=== PATIENT | female | born 1985 | race Caucasian/White ===

== ENCOUNTER → 2018-11-24 | Outpatient (CLI) | payer BC ==
[2018-11-24 17:48] LABS: HEMATOCRIT 34.8 % (36.0-47.0); HEMOGLOBIN 11.4 g/dl (12.0-15.5); MEAN CORPUSCULAR HGB CONC 32.8 g/dl (32.0-36.5); MEAN CORPUSCULAR VOLUME 94.6 fl (80.0-96.0); PLATELET COUNT, AUTOMATED 347 10^3/uL (150-450); RED BLOOD COUNT 3.68 10^6/uL (4.00-5.40)
[2018-11-24 17:55] LABS: WHITE BLOOD COUNT 16.3 10^3/uL (4.0-10.0)
[2018-11-24 18:56] LABS: CHLAMYDIA DNA AMPLIFICATION NEGATIVE (NEGATIVE); GC DNA AMPLIFICATION NEGATIVE (NEGATIVE)
[2018-11-24 19:03] LABS: ATYPICAL LYMPH 1 % (0-5); EOSINOPHILS 1 % (0-5); LYMPHOCYTES 37 % (16-52); MONOCYTES 5 % (0-8); NEUTROPHILS 56 % (35-75); PLATELET ESTIMATE NORMAL (NORMAL)
[2018-11-25 10:58] LABS: HEPATITIS C VIRUS ABY INDEX 0.1 INDEX (<0.8); HIV 1&2 SCREEN CENTAUR NEGATIVE (NEGATIVE); RUBELLA IgG QUALITATIVE IMMUNE (IMMUNE)
== END ==
LOC: M SMT 15:43
PROVIDERS: ATTEND Advanced Practice Midwife
DX: Z34.81 Encounter for supervision of other normal pregnancy, first trimester (principal); Z36.89 Encounter for other specified antenatal screening

== ENCOUNTER → 2018-12-30 | Outpatient (CLI) | payer OTHER | LOC: M SMT 14:22 | PROVIDERS: ATTEND Obstetrics & Gynecology | DX: Z13.79 Encounter for other screening for genetic and chromosomal anomalies (principal) ==

== ENCOUNTER → 2019-02-22 | Outpatient (CLI) | payer BC ==
--- NOTE | 2019-02-22 16:31 | REP ---
Obstetric sonography: History: Supervision of , for anatomy. Findings: Scanning through the gravid uterus demonstrates a viable single intrauterine gestation in a cephalic lie. motion is observed and heart rate is recorded at 141 beats per minute. A grade 1 posterior placenta is seen without evidence of previa or abruption. Amniotic fluid is subjectively normal. Closed cervical length measures to 4.5 cm viewed transabdominally. No extrauterine abnormalities observed. No anomaly is seen. Right ventricular cardiac outflow tract view is less than optimally seen due to position. The following additional anatomic structures are identified and felt to be sonographically unremarkable: cranium, choroid plexus, cavum, cerebellum posterior fossa, face and profile, lungs, four-chamber heart with left ventricular outflow tract view, diaphragm, left-sided stomach, abdominal wall cord insertion, three-vessel umbilical cord, kidneys and bladder, spine, upper and lower extremities. Biometry chart: BPD 4.6 cm 19 weeks 6 days Head circumference 17.5 cm 20 weeks 0 days Abdominal circumference 14.6 cm 19 weeks 6 days Femur length 3.4 cm 20 weeks 4 days Humeral length 3.2 cm 20 weeks 4 days Cerebellar diameter 1.9 cm 18 weeks 4 days HC/AC ratio normal 1.20, cephalic index normal 0.71 estimated weight 337 grams, 0 pounds 11 ounces, 56th percentile for 19 weeks 6 days. Impression: Viable single intrauterine gestation of 19 weeks 6 days by today's composite criteria. OSMAR by today's sonography July 13, 2019. Electronically Signed by Tan Herr MD 02/22/2019 04:32 P
== END ==
LOC: M SMT 14:21
PROVIDERS: ATTEND Obstetrics & Gynecology
DX: Z34.82 Encounter for supervision of other normal pregnancy, second trimester (principal); Z36.89 Encounter for other specified antenatal screening; Z3A.19 19 weeks gestation of pregnancy

== ENCOUNTER → 2019-04-06 | Outpatient (CLI) | payer BC ==
[2019-04-06 13:31] LABS: BASO # 0.1 10^3/uL (0.0-0.2); BASO % 0.5 % (0.0-1.0); EOS # 0.2 10^3/uL (0.0-0.50); EOS % 1.3 % (0.0-3.0); HEMATOCRIT 33.3 % (36.0-47.0); HEMOGLOBIN 10.6 g/dl (12.0-15.5); LYMPH # 3.7 10^3/uL (1.5-4.5); LYMPH % 26.7 % (24.0-44.0); MEAN CORPUSCULAR HEMOGLOBIN 30.8 pg (27.0-33.0); MEAN CORPUSCULAR HGB CONC 31.8 g/dl (32.0-36.5); MEAN CORPUSCULAR VOLUME 96.8 fl (80.0-96.0); MONO # 0.9 10^3/uL (0.0-0.8); MONO % 6.5 % (0.0-5.0); NEUTROPHILS # 8.9 10^3/uL (1.8-7.7); NEUTROPHILS % 64.6 % (36.0-66.0); PLATELET COUNT, AUTOMATED 285 10^3/uL (150-450); RED BLOOD COUNT 3.44 10^6/uL (4.00-5.40); WHITE BLOOD COUNT 13.8 10^3/uL (4.0-10.0)
== END ==
LOC: M SMT 10:49
PROVIDERS: ATTEND Advanced Practice Midwife
DX: O09.513 Supervision of elderly primigravida, third trimester (principal); Z3A.00 Weeks of gestation of pregnancy not specified

== ENCOUNTER → 2019-06-14 | Outpatient (REF) | payer BC | LOC: M LAB REF 18:01 | PROVIDERS: ATTEND Advanced Practice Midwife | DX: O09.513 Supervision of elderly primigravida, third trimester (principal) ==

== ENCOUNTER → 2019-06-22 | Outpatient (REF) | payer BC ==
[~2019-06-22] MED LIST: OMEP10CASR PO; PRENTAB9 PO; WELLTAB40 PO
[2019-06-23 13:59] LABS: HEMATOCRIT 33.5 % (36.0-47.0); HEMOGLOBIN 10.1 g/dl (12.0-15.5); MEAN CORPUSCULAR HEMOGLOBIN 30.1 pg (27.0-33.0); MEAN CORPUSCULAR HGB CONC 30.1 g/dl (32.0-36.5); PLATELET COUNT, AUTOMATED 277 10^3/uL (150-450); RED BLOOD COUNT 3.35 10^6/uL (4.00-5.40); WHITE BLOOD COUNT 14.9 10^3/uL (4.0-10.0)
[2019-06-23 14:26] LABS: CREATININE,RANDOM URINE 59.9 MG/DL; TOTAL PROTEIN,RANDOM URINE 10.4 MG/DL (0.0-12.0)
== END ==
LOC: M LABSMT 13:35
PROVIDERS: ATTEND Advanced Practice Midwife
DX: O09.513 Supervision of elderly primigravida, third trimester (principal); O16.3 Unspecified maternal hypertension, third trimester

== ENCOUNTER → 2019-06-23 | Outpatient (REF) | payer BC ==
[2019-06-23 15:52] LABS: ALT/SGPT 18 U/L (12-78); BILIRUBIN,TOTAL 0.2 MG/DL (0.2-1.0); CREATININE FOR GFR 0.92 MG/DL (0.55-1.30); GLOMERULAR FILTRATION RATE > 60.0 (>60); LDH LACTATE DEHYDROGENASE 166 U/L (84-246); URIC ACID 7.2 MG/DL (2.6-6.0)
== END ==
LOC: M SMT 15:00
PROVIDERS: ATTEND Advanced Practice Midwife
DX: O16.3 Unspecified maternal hypertension, third trimester (principal)

== ENCOUNTER 2019-06-30 21:50 | Inpatient (IN) | payer BC ==
[~2019-06-30] VITALS: Ht 162.6 cm; Wt 94.3 kg
[2019-06-30 22:12] VITALS: BP 135/88
[2019-06-30 22:15] VITALS: BP 135/82
[2019-06-30 22:17] VITALS: BP 130/84
[2019-06-30] MEDS ORDERED: PRENTAB9 PO ×2 (22:25)
[2019-06-30] MEDS ORDERED: OMEP10CASR PO (22:25)
[2019-06-30] MEDS ORDERED: WELLTAB40 PO (22:25)
[2019-06-30 22:52] VITALS: BP 141/93
[2019-06-30] MEDS ORDERED: LACTATED RINGER'S 1000 ML IV STA (22:56)
[2019-06-30 23:07] VITALS: BP 138/91
--- NOTE | 2019-06-30 23:10 | HPEPDOC ---
Obstetrical History & Physical General Date of Admission June 30, 2019 History of Present Illness Chief Complaint: LOF, term Information Provided By: Patient Age: 33 : 1 Term: 0 Pre-term: 0 Abortions: 0 Livin Care Care: Good Care Dating Final EDC: Jul 12, 2019 Final EDC by: 1st trimester (US) EGA at Admission: 38 (+2) Antepartum Course Height (inches): 64 Pre- weight (lbs.): 189 Admission Weight (lbs.): 204 Past Medical History Past Obstetrical History : Past Obstetrical History: [employer] History: Abnormal Pap Past Medical History Medical History Anxiety, depression, childhood hypothyroidism Surgical History: Other (benign tumor removed from back 2013) Family History Significant Family History: Diabetes, Heart disease, Other (down's syndrom, autism) Social History Marital Status: Family situation: Spouse/partner home Psychosocial History: Anxiety, Depression * Smoker: non-smoker Alcohol: Denies Drugs: denies Abuse Violence Screening Have you been hit/kicked/slapp: No Imunizations Tdap status: current Allergies Coded Allergies: Sulfa (Sulfonamide Antibiotics) (Verified Adverse Reaction, Intermediate, UTI, YEAST INFECTION, YELLOWED GUMS, FAINTING , 06/30/19) amoxicillin (Verified Adverse Reaction, Intermediate, DIARRHEA, NIGHTMARES, 06/30/19) clavulanic acid (Verified Adverse Reaction, Intermediate, DIARRHEA, NIGHTMARES, 06/30/19) ibuprofen (Verified Adverse Reaction, Intermediate, GI BLEED, NAUSEA, HEADACHES, 06/30/19) NAPROXEN OK Medications Scheduled Bupropion HCl (Wellbutrin Xl) 300 Mg Tab.er.24h, 300 MG PO DAILY No.137/Iron/Folic Acd ( Vitamin Tablet) 1 Each Tablet, 1 TAB PO DAILY Scheduled PRN Omeprazole (Omeprazole) 10 Mg Capsule.dr, 20 MG PO DAILYPRN PRN for SEE LABEL COMMENTS Physical Examination Physical Examination GENERAL: Alert and oriented times three. BREAST: . ABDOMEN: Gravid and non-tender to touch. FETUS: Is vertex (VTX) by sterile vaginal examination (SVE), fetus is vertex (VTX) by Edgardo. HEART RATE: Regular rate and rhythm. LUNGS: Clear to auscultation (CTA). EXTREMITIES: No edema. No clonus. Deep tendon reflexes (DTRs) + 2. Pertinent Laboratoy Data Blood Type: O+ RBC Antibody Screen: Negative HIV: Negative Hepatitis B: Negative Hepatitis C: Negative Rapid Plasma Reagin: Nonreactive Rubella: Immune Chlamydia/Gonorrhea: Negative Group B Streptococcus: Negative Quad Screen Test: Negative (panorama low risk, female) Glucose Tolerance Test: 81 Anatomy Ultrasound Ultrasound Date: Feb 22, 2019 Placenta Location: Posterior Normal Anatomy: Yes Placenta Previa: No Estimated Weight (grams): 337 (56%) Other Ultrasounds 11/24/18 dating 7w1d Steroid Therapy Steroid Therapy: No Vaginal Examination Dilation: 2cm Effacement: 80% Station: -2 Cervical Consistency: Soft Cervical Position: Middle Presentation: Cephalic presentation Assessment Heart Rate (FHR): 145 Variability: Moderate Accelerations: Positive Decelerations: None Tocometer Contractions: Yes Frequency: irregular Strength: palpated as mild Assessment/Plan Assessment Vin is a 33-year-old (G)1 para (P)0-0-0-0 at 38+2 weeks by 7-week ultrasound. Presents to Labor and Delivery (L&D) with reports of large gushes of clear fluid 2044. Reports mild cramping. Fetus is active. Clear fluid noted to be draining per vagina. Plan Admit and orient. Family Court Justice and consent. Diet: regular. Group B Streptococcus (GBS) negative. Labs and intravenous (IV) per unit protocol. Counseled on Pitocin and induction of labor (IOL). Lactated Ringers (LR): Bolus 500 mL, then saline lock. Plans to labor ad eva Anticipate normal spontaneous delivery (). C-S as appropriate. Nisreen Cruz CNM Jun 30, 2019 23:10
[2019-06-30 23:27] LABS: HEMOGLOBIN 10.3 g/dl (12.0-15.5); MEAN CORPUSCULAR HEMOGLOBIN 30.7 pg (27.0-33.0); MEAN CORPUSCULAR HGB CONC 33.2 g/dl (32.0-36.5); MEAN CORPUSCULAR VOLUME 92.5 fl (80.0-96.0); PLATELET COUNT, AUTOMATED 254 10^3/uL (150-450); RED BLOOD COUNT 3.35 10^6/uL (4.00-5.40); WHITE BLOOD COUNT 17.7 10^3/uL (4.0-10.0)
[2019-06-30 23:52] VITALS: BP 139/91
[2019-07-01] VITALS (50 sets, daily range): BP systolic 53–166; BP diastolic 21–103
--- NOTE | 2019-07-01 00:37 | IPNPDOC ---
Text Note Date of Service The patient was seen on 07/01/19. NOTE Becoming uncomfortable, requesting pain management FH 130, Cat I UC 2-4 minutes apart x 45-60 seconds, moderate SVE 4-5/90/-1, moderate bloody show Stadol and phenergan ordered VS,Fishbone, I+O VS, Fishbone, I+O Laboratory Tests 06/30/19 23:12 Red Blood Count 3.35 L, Mean Corpuscular Volume 92.5, Mean Corpuscular Hemoglobin 30.7, Mean Corpuscular Hemoglobin Concent 33.2, Red Cell Distribution Width 13.9 Vital Signs Date Time Temp Pulse Resp B/P (MAP) Pulse Ox O2 Delivery O2 Flow Rate FiO2 06/30/19 23:07 88 18 138/91 (107) 06/30/19 22:15 97.9 Nisreen Cruz CNM Jul 01, 2019 00:37
[2019-07-01] MEDS ORDERED: PROMETHAZINE INJ 25 MG/ML VIAL (J2550) IV ONE (00:45)
[2019-07-01] MEDS ORDERED: BUTORPHANOL 2 MG/ML INJ (J0595) IV ONE (00:45)
[2019-07-01] MEDS ORDERED: OXYTOCIN 30 UNITS IN 0.9% NaCl 500ML IV BAG (J2590) As Ordered ONE (06:59)
--- NOTE | 2019-07-01 07:15 | IPNPDOC ---
Text Note Date of Service The patient was seen on 07/01/19. NOTE Strong urge to push. Anterior lip reduced with maternal bearing down efforts 0604. FH 145 with decels after approximately every 3rd contraction to 80's-100's Multiple position changes, O2 and IV bolus provided Dr Quinn requested to attend Vera IGLESIAS, I+O VSVera I+O Laboratory Tests 06/30/19 23:12 Red Blood Count 3.35 L, Mean Corpuscular Volume 92.5, Mean Corpuscular Hemoglobin 30.7, Mean Corpuscular Hemoglobin Concent 33.2, Red Cell Distribution Width 13.9 Vital Signs Date Time Temp Pulse Resp B/P (MAP) Pulse Ox O2 Delivery O2 Flow Rate FiO2 07/01/19 04:02 69 18 155/90 (111) 07/01/19 01:38 97.6 I&O- Last 24 Hours up to 6 AM 07/01/19 06:00 Output Total 300 ml Balance -300 ml Nisreen Cruz CNM Jul 01, 2019 07:15
[2019-07-01] MEDS ORDERED: ceFAZolin 2 GM/D5W 50 ML IV BAG (J0690 PER 500MG) As Ordered ONE ×2 (08:18→11:54)
[2019-07-01] MEDS ORDERED: AZITHROMYCIN INJ 500MG VIAL (J0456) As Ordered ONE (08:20)
[2019-07-01] MEDS ORDERED: BICITRA 30ML SOLN UDC As Ordered ONE (08:20)
[2019-07-01] MEDS ORDERED: MORPHINE PRES-FREE INJ 10 MG/10 ML VIAL (J2274) As Ordered ONE (08:21)
[2019-07-01] MEDS ORDERED: OXYTOCIN INJ 10 UNITS/ML VIAL (J2590) As Ordered ONE ×3 (08:32→08:55)
[2019-07-01] MEDS ORDERED: ONDANSETRON 4MG/2ML VIAL (J2405) As Ordered ONE (08:33)
[2019-07-01] MEDS ORDERED: PHENYLephrine HCL 500 MCG/5 ML (100MCG/ML) SYRINGE (J2370) As Ordered ONE ×3 (08:34→09:41)
[2019-07-01 08:47] LABS: CORD GAS ABE V -13.1; CORD GAS HCO3 V 16.2 MEQ/L; CORD GAS O2 SAT V 21.7 %; CORD GAS PCO2 V 49.8 mmHg; CORD GAS PH V 7.129 UNITS; CORD GAS PO2 V 16.2 mmHg; CORD GAS SBC V 13.1 MEQ/L; CORD GAS TCO2 V 17.7 MEQ/L
[2019-07-01 08:50] LABS: CORD GAS ABE A -14.5; CORD GAS HCO3 A 15.5 MEQ/L; CORD GAS O2 SAT A 17.3 %; CORD GAS PCO2 A 52.4 mmHg; CORD GAS PH A 7.089 UNITS; CORD GAS PO2 A 15.7 mmHg; CORD GAS SBC A 12.1 MEQ/L; CORD GAS TCO2 A 17.1 MEQ/L
[2019-07-01] MEDS ORDERED: ePHEDrine SULFATE 25 MG/5 ML(5MG/ML) SYRINGE As Ordered ONE ×2 (08:58→09:16)
[2019-07-01] MEDS: DOCUSATE SODIUM 100 MG CAP PO SCH ×2 (09:00→21:00)
[2019-07-01] MEDS ORDERED: OXYTOCIN DRIP 30 UNITS in APPROPRIATE DILUENT 1 EA IV SCH (09:46)
[2019-07-01] MEDS ORDERED: VASOPRESSIN INJ 20 UNITS/ML VIAL As Ordered ONE ×2 (09:55→14:09)
[2019-07-01] MEDS ORDERED: ONDANSETRON 4MG/2ML VIAL (J2405) IV PRN ×2 (10:00)
[2019-07-01] MEDS ORDERED: MEASLES,MUMPS,RUBELLA VACCINE INJ (MMR-II) (90707) SC SCH (10:00)
[2019-07-01] MEDS ORDERED: PROMETHAZINE 25 MG TAB PO PRN (10:00)
[2019-07-01] MEDS ORDERED: fentaNYL 100 MCG/2 ML INJECTION (J3010) IV PRN (10:00)
[2019-07-01] MEDS ORDERED: RHOGAM 300 MCG (1500 IU) INJ (J2790) IM SCH (10:00)
[2019-07-01] MEDS ORDERED: LR 500 ML IV ONE (10:15)
[2019-07-01 10:17] LABS: HEMATOCRIT 19.7 % (36.0-47.0); MEAN CORPUSCULAR HEMOGLOBIN 31.4 pg (27.0-33.0); MEAN CORPUSCULAR HGB CONC 32.5 g/dl (32.0-36.5); MEAN CORPUSCULAR VOLUME 96.6 fl (80.0-96.0); PLATELET COUNT, AUTOMATED 270 10^3/uL (150-450); RED BLOOD COUNT 2.04 10^6/uL (4.00-5.40); WHITE BLOOD COUNT 28.1 10^3/uL (4.0-10.0)
[2019-07-01 10:21] LABS: HEMOGLOBIN 6.4 g/dl (12.0-15.5)
[2019-07-01] MEDS ORDERED: SUCCINYLCHOLINE 100 MG/5 ML SYRINGE (J0330) As Ordered ONE (10:29)
[2019-07-01] MEDS ORDERED: ETOMIDATE INJ 20MG/10ML VIAL As Ordered ONE ×2 (10:29→10:33)
[2019-07-01] MEDS ORDERED: TRANEXAMIC ACID 100 MG/ML 10ML VIAL As Ordered ONE (10:50)
[2019-07-01] MEDS ORDERED: PHENYLEPHRINE INJ 10MG/ML VIAL (J2370) As Ordered ONE ×2 (10:51→14:11)
[2019-07-01 10:54] LABS: INR 1.19; PROTHROMBIN TIME 14.8 SECONDS (11.8-14.0)
[2019-07-01] MEDS ORDERED: ROCURONIUM BROMIDE 50 MG/5 ML VIAL As Ordered ONE ×2 (11:08→13:14)
[2019-07-01] MEDS ORDERED: fentaNYL 100 MCG/2 ML INJECTION (J3010) As Ordered ONE ×2 (11:09→12:35)
[2019-07-01 11:10] LABS: PARTIAL THROMBOPLASTIN TIME 24.1 SECONDS (25.0-38.4)
[2019-07-01] MEDS ORDERED: MIDAZOLAM INJ 2 MG/2 ML VIAL (J2250) As Ordered ONE ×3 (11:10→13:13)
[2019-07-01 12:23] LABS: ABG BASE EXCESS -12.5 (-2.0-2.0); ABG HCO3 13.5 MEQ/L (22.0-26.0); ABG O2 SATURATION 99.1 % (95.0-99.0); ABG PARTIAL PRESSURE CO2 31.2 mmHg (35.0-45.0); ABG STANDARD HCO3 14.6 MEQ/L (22.0-26.0); ABG TOTAL CO2 14.5 MEQ/L (22.0-29.0); ABG pH (ARTERIAL) 7.255 UNITS (7.350-7.450)
[2019-07-01] MEDS ORDERED: HumuLIN R (REGULAR) INSULIN (NovoLIN R) **100U/ML** PER UNIT IV STA (12:25)
[2019-07-01] MEDS ORDERED: DEXTROSE 50% 50 ML SYRINGE IV STA (12:25)
[2019-07-01] MEDS ORDERED: SODIUM BICARBONATE 8.4% INJ 50 ML SYRINGE As Ordered ONE (12:33)
[2019-07-01 13:45] LABS: HEMATOCRIT 24.1 % (36.0-47.0); MEAN CORPUSCULAR HEMOGLOBIN 29.9 pg (27.0-33.0); MEAN CORPUSCULAR HGB CONC 33.2 g/dl (32.0-36.5); MEAN CORPUSCULAR VOLUME 89.9 fl (80.0-96.0); RED BLOOD COUNT 2.68 10^6/uL (4.00-5.40); WHITE BLOOD COUNT 21.1 10^3/uL (4.0-10.0)
[2019-07-01 13:59] LABS: PLATELET COUNT, AUTOMATED 74 10^3/uL (150-450); VENOUS BASE EXCESS -9.8 (-2.0-2.0); VENOUS HCO3 17.8 MEQ/L (23.0-27.0); VENOUS O2 SATURATION 97.9 % (60.0-80.0); VENOUS PARTIAL PRESSURE O2 121.2 mmHg (30.0-50.0); VENOUS PH 7.196 UNITS (7.330-7.430); VENOUS STANDARD HCO3 16.5 MEQ/L; VENOUS TOTAL CO2 19.2 MEQ/L (24.0-28.0)
[2019-07-01 14:02] LABS: INR 1.32; PARTIAL THROMBOPLASTIN TIME 22.4 SECONDS (25.0-38.4); PROTHROMBIN TIME 16.1 SECONDS (11.8-14.0)
[2019-07-01 14:20] LABS: ALBUMIN 1.6 GM/DL (3.2-5.2); BILIRUBIN,DIRECT 0.3 MG/DL (0.0-0.2); BILIRUBIN,TOTAL 0.5 MG/DL (0.2-1.0); MB/CK RELATIVE INDEX 1.66 (< OR =4); TOTAL PROTEIN 3.3 GM/DL (6.4-8.2)
[2019-07-01 14:23] LABS: ALBUMIN 1.6 GM/DL (3.2-5.2); BILIRUBIN,TOTAL 0.5 MG/DL (0.2-1.0); CALCIUM LEVEL 7.3 MG/DL (8.5-10.1); CK-MB VALUE MASS 7.8 NG/ML (<3.6); CREATININE FOR GFR 1.26 MG/DL (0.55-1.30); GLOMERULAR FILTRATION RATE 51.4 (>60); MB/CK RELATIVE INDEX 1.87 (< OR =4); POTASSIUM SERUM 4.7 MEQ/L (3.5-5.1); TOTAL PROTEIN 3.5 GM/DL (6.4-8.2); TROPONIN I 0.64 NG/ML (< 0.10)
--- NOTE | 2019-07-01 14:28 | REP ---
Clinical: Hemorrhage. Technique: Axial noncontrast images from the level of the thoracic arch through the pubic symphysis with coronal and sagittal re-formations. Findings: Postoperative changes are appreciated including small amounts of pneumoperitoneum and transverse skin stalin along the anterior mid pelvis. Large amount of abdominopelvic hemorrhage and hematoma is identified throughout the abdomen and pelvis and predominantly centered in the lower abdomen and pelvis with forming hematoma in the the right lower quadrant. The right kidney is considerably decreased in size and demonstrates an irregular contour with surrounding inflammatory/hemorrhagic fluid suggesting possible source for the above-mentioned abdominopelvic hemorrhage. Liver, spleen, pancreas, gallbladder, bilateral adrenal glands, left kidney appear relatively normal. The enteric system is poorly evaluated although there is no evidence for obstruction. Pelvis demonstrates Lopez catheter in collapsed bladder and the uterus/adnexa are incompletely evaluated due to surrounding hemorrhage/hematoma. Impression: Large amount of hemorrhage and hematoma fills the abdomen and pelvis as described above. Source may be related to an irregular appearing right kidney which may be secondary to renal laceration. Electronically Signed by Jeramie Cerna MD 07/01/2019 02:19 P
[2019-07-01] MEDS ORDERED: PHENYLEPHRINE HCL INJ 50 MG in D5W 495 ML IV SCH (14:30)
[2019-07-01] MEDS ORDERED: VASOPRESSIN INJ 20 UNITS in NS 499 ML IV SCH (14:30)
[2019-07-01 14:46] LABS: BASO % 0.1 % (0.0-1.0); EOS % 0.1 % (0.0-3.0); HEMATOCRIT 20.8 % (36.0-47.0); LYMPH # 3.8 10^3/uL (1.5-4.5); LYMPH % 24.3 % (24.0-44.0); MEAN CORPUSCULAR HEMOGLOBIN 30.2 pg (27.0-33.0); MEAN CORPUSCULAR HGB CONC 32.7 g/dl (32.0-36.5); MEAN CORPUSCULAR VOLUME 92.4 fl (80.0-96.0); MONO % 6.6 % (0.0-5.0); NEUTROPHILS # 10.6 10^3/uL (1.8-7.7); NEUTROPHILS % 67.4 % (36.0-66.0); RED BLOOD COUNT 2.25 10^6/uL (4.00-5.40); WHITE BLOOD COUNT 15.8 10^3/uL (4.0-10.0)
[2019-07-01 14:47] LABS: IONIZED CALCIUM 3.9 MG/DL (4.5-5.3)
[2019-07-01 14:49] LABS: ABG BASE EXCESS -12.9 (-2.0-2.0); ABG HCO3 12.1 MEQ/L (22.0-26.0); ABG O2 SATURATION 98.8 % (95.0-99.0); ABG PARTIAL PRESSURE CO2 24.5 mmHg (35.0-45.0); ABG PARTIAL PRESSURE O2 149.3 mmHg (75.0-100.0); ABG STANDARD HCO3 14.1 MEQ/L (22.0-26.0); ABG TOTAL CO2 12.8 MEQ/L (22.0-29.0); ABG pH (ARTERIAL) 7.311 UNITS (7.350-7.450); HEMOGLOBIN 6.8 g/dl (12.0-15.5); PLATELET COUNT, AUTOMATED 55 10^3/uL (150-450)
--- NOTE | 2019-07-01 15:04 | REP ---
Clinical: Status post intubation . Comparison: None . Findings: Right IJ line with tip in the right atrium. Endotracheal tube 2.6 cm above the otf. The mediastinum and cardiac silhouette are stable and within normal limits for portable technique. The lung araiza are clear without acute consolidation, effusion, or pneumothorax. Skeletal structures are intact. Impression: No acute cardiopulmonary process appreciated. Electronically Signed by Jeramie Cerna MD 07/01/2019 02:54 P
[2019-07-01 15:05] LABS: INR 1.56; PROTHROMBIN TIME 18.4 SECONDS (11.8-14.0)
[2019-07-01 15:06] LABS: PARTIAL THROMBOPLASTIN TIME 36.5 SECONDS (25.0-38.4)
[2019-07-01 15:22] LABS: ALBUMIN 1.4 GM/DL (3.2-5.2); BILIRUBIN,TOTAL 0.4 MG/DL (0.2-1.0); CALCIUM LEVEL 6.9 MG/DL (8.5-10.1); CK-MB VALUE MASS 5.9 NG/ML (<3.6); CREATININE FOR GFR 1.41 MG/DL (0.55-1.30); GLOMERULAR FILTRATION RATE 45.2 (>60); MB/CK RELATIVE INDEX 1.69 (< OR =4); POTASSIUM SERUM 5.4 MEQ/L (3.5-5.1); TROPONIN I 0.23 NG/ML (< 0.10)
[2019-07-01] MEDS ORDERED: CALCIUM GLUCONATE 1,000MG/10ML VIAL (100MG/ML) (J0610) As Ordered ONE (15:27)
[2019-07-01 15:31] LABS: ABG PARTIAL PRESSURE O2 126.2 mmHg (75.0-100.0)
[2019-07-01 15:32] LABS: ABG PARTIAL PRESSURE CO2 45.5 mmHg (35.0-45.0); ABG pH (ARTERIAL) 6.959 UNITS (7.350-7.450)
[2019-07-01 15:33] LABS: ABG BASE EXCESS 20.2 (-2.0-2.0); ABG HCO3 9.9 MEQ/L (22.0-26.0); ABG TOTAL CO2 11.3 MEQ/L (22.0-29.0)
[2019-07-01 15:34] LABS: ABG O2 SATURATION 97.1 % (95.0-99.0); ABG STANDARD HCO3 8.7 MEQ/L (22.0-26.0)
[2019-07-01] MEDS ORDERED: CALCIUM GLUCONATE 1,000 MG in D5W MINI-BAG PLUS 100 ML IV ONE (16:00)
[2019-07-01] MEDS ORDERED: LORazepam 2 MG/ML VIAL (J2060) As Ordered ONE (16:20)
[2019-07-01 16:34] LABS: ABG BASE EXCESS -18.6 (-2.0-2.0); ABG HCO3 9.1 MEQ/L (22.0-26.0); ABG O2 SATURATION 98.8 % (95.0-99.0); ABG PARTIAL PRESSURE CO2 28.6 mmHg (35.0-45.0); ABG PARTIAL PRESSURE O2 168.2 mmHg (75.0-100.0); ABG STANDARD HCO3 10.1 MEQ/L (22.0-26.0); ABG pH (ARTERIAL) 7.122 UNITS (7.350-7.450)
[2019-07-01] MEDS ORDERED: ISOVUE-370 76% 100ML VIAL (Q9967) As Ordered ONE (16:35)
--- NOTE | 2019-07-01 17:22 | REP ---
Clinical: Abdominopelvic hemorrhage . Comparison: None . Findings: The ventricles, sulci, and cisterns are normal in position and appearance. Ryan-white differentiation is maintained. No acute intracranial hemorrhage, mass/mass effect, pathology or trauma/injury. No evidence for acute infarction. No extra-axial fluid collection. Calvarium is intact. Paranasal sinuses and mastoid air cells are clear. Impression: Normal noncontrast head CT. No evidence for acute intracranial pathology or trauma/injury. Electronically Signed by Jeramie Cerna MD 07/01/2019 05:13 P
[2019-07-01] MEDS ORDERED: LIDOCAINE 2% MDV 20 ML VIAL As Ordered ONE (17:30)
[2019-07-01] MEDS ORDERED: BUPIVACAINE HCL 0.5% 10 ML VIAL As Ordered ONE (17:30)
[2019-07-01] MEDS ORDERED: ISOVUE-300 61% 50ML VIAL (Q9967) As Ordered ONE ×2 (17:30→17:47)
--- NOTE | 2019-07-01 17:41 | REP ---
Clinical: Abdominopelvic hemorrhage. Technique: Axial contrast enhanced images from the lung bases to the pubic symphysis obtained in arterial phase, portal venous phase, and delayed phases of enhancement with coronal and sagittal re-formations. Comparison: Earlier noncontrast CT of the abdomen and pelvis. Findings: A large right retroperitoneal hematoma is identified which measures greater than 13.3 x 10.4 x 16.5 cm demonstrating associated mass effect on the surrounding abdomen and pelvis and retroperitoneal structures. Moderate to significant amount of ascites is appreciated intraperitoneally throughout the abdomen and pelvis. Arterial phase images demonstrate no obvious focal area of extravasation or blush to suggest source for bleeding. However, few small arteries in the deep right caridad pelvis along the inferior base of the hematoma are identified which may represent a source vessels (images 137-139). There is no evidence for obvious solid organ injury and the liver, spleen, pancreas, gallbladder, bilateral adrenal glands and left kidney appear normal. The right kidney is disproportionately decreased in size which likely represents congenital anomaly rather than an acute process. A moderate amount of right perinephric fluid is identified, but the kidney itself demonstrates relatively symmetric enhancement as compared to the normal left kidney but small areas of acute renal parenchymal infarction cannot definitively be excluded. The enteric system is without obvious obstruction although the small and large bowel is incompletely evaluated due to lack of contrast and surrounding fluid. Further evaluation of the pelvis demonstrates changes related to recent section and the uterus itself is incompletely evaluated due to surrounding fluid and opacities. Small amount of pneumoperitoneum is consistent with the recent section. Right femoral vein catheter extends into the external iliac vein. Lopez catheter noted in collapsed bladder. Osseous structures are intact. Lung bases demonstrate minimal bibasilar atelectasis and small pleural reactions. Impression: 1. Large right retroperitoneal hematoma as described and detailed above causing mass effect. A [id number] amount of ascites noted throughout the abdomen and pelvis. No definitive vascular laceration is identified. 2. Presumed congenital atrophic right kidney warrants further investigation. Subtle small areas of right renal infarction cannot definitively be excluded and a moderate amount of right perinephric fluid is identified which is somewhat limits evaluation of the kidney. 3. Postsurgical changes related to recent section. Electronically Signed by Jeramie Cerna MD 07/01/2019 05:31 P
[2019-07-01] MEDS ORDERED: METHYLERGONOVINE MALEATE 0.2 MG/ML VIAL (J2210) As Ordered ONE (17:59)
[2019-07-01] MEDS ORDERED: CARBOPROST TROMETHAMINE 250 MCG/ML AMP As Ordered ONE (17:59)
[2019-07-01] MEDS: LORazepam 2 MG/ML VIAL (J2060) IV STA ×2 (18:13→18:30)
[2019-07-01] MEDS ORDERED: MORPHINE 4 MG/ML 1ML VIAL/SYRINGE (J2270) IV PRN (18:45)
[2019-07-01 18:53] LABS: MAGNESIUM LEVEL 1.8 MG/DL (1.8-2.4)
[2019-07-01] MEDS ORDERED: SODIUM CHLORIDE 0.9% INJ 10 ML SYR IV PRN (19:00)
[2019-07-01] MEDS ORDERED: HEPARIN 1,000 UNITS/ML 10ML VIAL (FOR RADIOLOGY& DIALYSIS ONLY) IV PRN (19:00)
[2019-07-01 19:50] LABS: IONIZED CALCIUM 3.7 MG/DL (4.5-5.3)
[2019-07-01 19:52] LABS: HEMATOCRIT 32.1 % (36.0-47.0); HEMOGLOBIN 10.5 g/dl (12.0-15.5); MEAN CORPUSCULAR HEMOGLOBIN 29.6 pg (27.0-33.0); MEAN CORPUSCULAR HGB CONC 32.7 g/dl (32.0-36.5); MEAN CORPUSCULAR VOLUME 90.4 fl (80.0-96.0); RED BLOOD COUNT 3.55 10^6/uL (4.00-5.40)
[2019-07-01 19:53] LABS: PLATELET COUNT, AUTOMATED 70 10^3/uL (150-450)
[2019-07-01 20:01] LABS: INR 1.65; PROTHROMBIN TIME 19.3 SECONDS (11.8-14.0)
[2019-07-01 20:01] LABS: ABG BASE EXCESS -12.2 (-2.0-2.0); ABG HCO3 13.7 MEQ/L (22.0-26.0); ABG O2 SATURATION 98.9 % (95.0-99.0); ABG PARTIAL PRESSURE CO2 31.2 mmHg (35.0-45.0); ABG PARTIAL PRESSURE O2 179.5 mmHg (75.0-100.0); ABG STANDARD HCO3 14.9 MEQ/L (22.0-26.0); ABG TOTAL CO2 14.6 MEQ/L (22.0-29.0)
[2019-07-01 20:02] LABS: PARTIAL THROMBOPLASTIN TIME 38.5 SECONDS (25.0-38.4)
[2019-07-01 20:17] LABS: ALBUMIN 1.9 GM/DL (3.2-5.2); BILIRUBIN,TOTAL 0.7 MG/DL (0.2-1.0); CALCIUM LEVEL 6.6 MG/DL (8.5-10.1); CREATININE FOR GFR 1.86 MG/DL (0.55-1.30); GLOMERULAR FILTRATION RATE 32.8 (>60); POTASSIUM SERUM 5.4 MEQ/L (3.5-5.1); TOTAL PROTEIN 3.7 GM/DL (6.4-8.2)
[2019-07-01] MEDS: MIDAZOLAM INJ 2 MG/2 ML VIAL (J2250) IV PRN ×2 (21:20→21:44)
[2019-07-01] MEDS: LR 1,000 ML IV SCH ×2 (21:22→22:20)
[2019-07-01] MEDS: PROPOFOL 1,000 MG in APPROPRIATE DILUENT 1 EA IV SCH (22:30)
[2019-07-01] MEDS: CHLORHEXIDINE GLUCONATE 0.12 % 15ML UDC (PERIDEX ORAL RINSE) MT SCH (23:55)
[2019-07-01] MEDS: MORPHINE 4 MG/ML 1ML VIAL/SYRINGE (J2270) IV SCH (23:59)
[2019-07-02] VITALS (24 sets, daily range): BP systolic 94–179; BP diastolic 52–84
[2019-07-02 00:14] LABS: HEMATOCRIT 36.4 % (36.0-47.0); MEAN CORPUSCULAR HEMOGLOBIN 29.6 pg (27.0-33.0); MEAN CORPUSCULAR HGB CONC 34.3 g/dl (32.0-36.5); MEAN CORPUSCULAR VOLUME 86.3 fl (80.0-96.0); RED BLOOD COUNT 4.22 10^6/uL (4.00-5.40); WHITE BLOOD COUNT 13.6 10^3/uL (4.0-10.0)
[2019-07-02 00:16] LABS: HEMOGLOBIN 12.5 g/dl (12.0-15.5); PLATELET COUNT, AUTOMATED 63 10^3/uL (150-450)
[2019-07-02 00:21] LABS: CALCIUM LEVEL 6.7 MG/DL (8.5-10.1); CREATININE FOR GFR 1.49 MG/DL (0.55-1.30); GLOMERULAR FILTRATION RATE 42.4 (>60); MAGNESIUM LEVEL 1.6 MG/DL (1.8-2.4); PHOSPHORUS LEVEL 4.7 MG/DL (2.5-4.9); POTASSIUM SERUM 4.3 MEQ/L (3.5-5.1)
[2019-07-02] MEDS: NS MINI IV SCH ×5 (01:08→09:29)
[2019-07-02] MEDS: CALCIUM GLUCONATE IV SCH ×5 (01:08→09:29)
[2019-07-02] MEDS: MAG SULF 1GM/100ML (MAG RUN) 1 GM in APPROPRIATE DILUENT 1 EA IV SCH ×2 (01:09→02:34)
[2019-07-02] MEDS: LR 1,000 ML IV SCH ×2 (01:21→10:11)
[2019-07-02] MEDS: MORPHINE 4 MG/ML 1ML VIAL/SYRINGE (J2270) IV SCH ×6 (02:07→12:26)
[2019-07-02] MEDS: PROPOFOL 1,000 MG in APPROPRIATE DILUENT 1 EA IV SCH ×4 (03:09→12:24)
[2019-07-02 04:20] LABS: HEMATOCRIT 30.7 % (36.0-47.0); HEMOGLOBIN 10.9 g/dl (12.0-15.5); MEAN CORPUSCULAR HEMOGLOBIN 29.3 pg (27.0-33.0); MEAN CORPUSCULAR HGB CONC 35.5 g/dl (32.0-36.5); MEAN CORPUSCULAR VOLUME 82.5 fl (80.0-96.0); RED BLOOD COUNT 3.72 10^6/uL (4.00-5.40); WHITE BLOOD COUNT 13.8 10^3/uL (4.0-10.0)
[2019-07-02 04:21] LABS: PLATELET COUNT, AUTOMATED 62 10^3/uL (150-450)
[2019-07-02 04:28] LABS: IONIZED CALCIUM 4.1 MG/DL (4.5-5.3)
[2019-07-02 04:39] LABS: CALCIUM LEVEL 6.9 MG/DL (8.5-10.1); CREATININE FOR GFR 1.39 MG/DL (0.55-1.30); GLOMERULAR FILTRATION RATE 45.9 (>60); MAGNESIUM LEVEL 2.2 MG/DL (1.8-2.4); PHOSPHORUS LEVEL 4.3 MG/DL (2.5-4.9); POTASSIUM SERUM 4.1 MEQ/L (3.5-5.1)
[2019-07-02 05:18] LABS: ABG BASE EXCESS -2.5 (-2.0-2.0); ABG HCO3 20.2 MEQ/L (22.0-26.0); ABG O2 SATURATION 98.7 % (95.0-99.0); ABG PARTIAL PRESSURE CO2 28.7 mmHg (35.0-45.0); ABG PARTIAL PRESSURE O2 144.2 mmHg (75.0-100.0); ABG STANDARD HCO3 22.4 MEQ/L (22.0-26.0); ABG TOTAL CO2 21.1 MEQ/L (22.0-29.0); ABG pH (ARTERIAL) 7.466 UNITS (7.350-7.450)
--- NOTE | 2019-07-02 06:49 | CR ---
DATE OF CONSULTATION: 07/01/2019 REQUESTING PHYSICIAN: Dr. Byers CONSULTING PHYSICIAN: Dr. Mahmood REASON FOR CONSULTATION: Management of metabolic acidosis and acute oliguric renal failure. CHIEF COMPLAINT: The patient was transferred to ICU because of hemorrhagic shock. HISTORY OF PRESENT ILLNESS: Vin Pérez is a 33-year-old female who is 1, who presented on June 30, 2019 with term labor. She needed to be taken to the operating room (OR) because of distress. She needed an emergency section. After the the patient was found to be hypotensive. Her hemoglobin dropped, she was taken to the OR where she was found to have retroperitoneal bleed. After the surgery, the patient was taken to the ICU with hemorrhagic shock. She has required multiple blood transfusions. So far, she has been transfused 13 units of packed red blood cells (PRBC), 8 units of fresh frozen plasma (FFP), and 1 unit of platelets. She was found to be oliguric in the ICU along with metabolic acidosis. pH on the ABG was 7.1. Repeat labs showed a rising creatinine with creatinine of 1.4 and serum bicarb of 13. Nephrology service was called for further help in the management of this patient with severe metabolic acidosis, hemorrhagic shock and acute renal failure. The patient needed my emergent attention. I saw the patient in interventional radiology today in the afternoon where she was getting ready to get the angiogram done. History was obtained from the chart and from the medical team. PAST MEDICAL HISTORY: Hypothyroidism in childhood. History of anxiety and depression. PAST SURGICAL HISTORY: History of benign tumor removed from the back in 2013. ALLERGIES: The patient is allergic to: 1. SULFA. 2. AUGMENTIN. 3. IBUPROFEN. FAMILY HISTORY: No significant family history of end-stage renal disease requiring dialysis. There is a positive family history of diabetes and Down syndrome in the family. REVIEW OF SYSTEMS: I was unable to do any review of systems because the patient is intubated. PHYSICAL EXAMINATION: GENERAL: Patient is intubated, sedated. VITAL SIGNS: Temperature is 98 degrees Fahrenheit. Blood pressures in the arterial line is 118/56, pulse is 153, respiratory rate of 24, saturating 100% on 35% FiO2. HEAD AND NECK EXAM: Patient has an endotracheal tube. Neck is supple. She has a triple lumen catheter in the neck. CARDIOVASCULAR: S1, S2 tachycardia. No edema of the bilateral lower extremities. RESPIRATORY: Bilateral transmitted breath sounds on the vent. No active rales or rhonchi. ABDOMEN: Is soft. Surgical incision site was noted. The patient has a Lopez catheter. MUSCULOSKELETAL: No clubbing or cyanosis. She has cold extremities. Pulses are 1+. NUTRITION CLUB AMBASSADOR: The patient is intubated and sedated. SKIN: No rashes or ulcers. LAB REVIEW: CBC showed a WBC of 15.8, hemoglobin 6.8, platelets of 55. PT 19.3, INR 1.6, PTT 38.5. ABG showed a pH of 7.12, pCO2 28, pO2 was 168, bicarb 9.1, O2 sat is 98%. BMP showed sodium 141, potassium of 5.4, chloride 111, bicarb 13, BUN 16, creatinine is 1.4, ionized calcium is 3.9, albumin 1.4. IMAGING STUDIES: A CT scan of the head was done which showed no evidence of acute intracranial pathology. CT angiogram was done today which showed large right retroperitoneal hematoma causing a mass effect. Moderate to large amount of ascites throughout the abdomen and pelvis. Congenital atrophic right kidney. Postsurgical changes related to recent . CURRENT INPATIENT MEDICATIONS: The patient's medications were all reviewed by me. She is getting IV calcium gluconate. She is getting phenylephrine. She is getting Ringer's Lactate at 125 mL an hour. I see Ringer's Lactate boluses being given earlier as well. She is on Zofran as needed. ASSESSMENT: 33-year-old female status post with retroperitoneal hematoma, hemorrhagic shock, acute oliguric renal failure and metabolic acidosis. PLAN: 1. Acute oliguric renal failure. The patient is in shock. Acute renal failure is secondary to acute tubular necrosis and hypotension. She also is noted to have a right-sided atrophic kidney, so a majority of the kidney function is most likely coming from the left side. Given the patient's critical status, I have requested vascular surgery to place a dialysis catheter. Once the patient has come to the ICU she will be started on continuous veno-venous hemodialysis filtration (CVVHDF). No fluid removal will be done. CVVHDF is for stabilization of her acid base status and for hyperkalemia. 2. High anion gap metabolic acidosis. It is secondary to hemorrhagic shock and acute renal failure. Acidosis will be corrected with CVVHDF. No need of IV bicarb administration at this time. 3. Hyperkalemia. It is secondary to acute renal failure. Hyperkalemia will be corrected with dialysis. Right now 4K dialysate will be used. If needed, dialysate will be changed to 2K. 4. Acute hemorrhagic shock. The patient has retroperitoneal hematoma. She is currently in intervention radiology to see if there is any active bleeder in the abdomen that can be coiled. Transfuse p.r.n. as per surgical team and critical care team. 5. Hypocalcemia. It is secondary to massive blood transfusion. I have already ordered the calcium repletion protocol with CVVHDF. 6. Vent dependent respiratory failure. The patient is currently intubated. Vent management is being done by the pulmonary team. Once we are able to correct her metabolic acidosis it will be easy to vent the patient. 7. Elevated troponin. It is likely stress induced. Trending troponin is improving. Plan of care was discussed with the critical care team and with vascular surgery. The patient's was also present outside interventional radiology and I discussed with him that we are going to start CVVHDF on the patient. Thank you for involving me in the care of this patient. I shall be happy to follow the patient along with you tomorrow morning. Total critical care time spent in the management of this patient today evening in the ICU is 70 minutes. This does not include any procedures.
[2019-07-02 08:19] LABS: IONIZED CALCIUM 4.1 MG/DL (4.5-5.3)
[2019-07-02 08:26] LABS: HEMATOCRIT 28.5 % (36.0-47.0); MEAN CORPUSCULAR HEMOGLOBIN 29.2 pg (27.0-33.0); MEAN CORPUSCULAR HGB CONC 35.1 g/dl (32.0-36.5); MEAN CORPUSCULAR VOLUME 83.3 fl (80.0-96.0); RED BLOOD COUNT 3.42 10^6/uL (4.00-5.40); WHITE BLOOD COUNT 13.4 10^3/uL (4.0-10.0)
[2019-07-02 08:33] LABS: PLATELET COUNT, AUTOMATED 56 10^3/uL (150-450)
--- NOTE | 2019-07-02 08:34 | REP ---
Clinical: Status post intubation . Comparison: 07/01/2019 . Findings: Endotracheal tube 2 cm above the otf. Nasogastric tube courses below left hemidiaphragm. Right IJ line with tip in the SVC/right atrium. The mediastinum and cardiac silhouette are stable and within normal limits for portable technique. The lung araiza are clear without acute consolidation, effusion, or pneumothorax. Skeletal structures are intact. Impression: 1. Lines and tubes in satisfactory position. 2. No obvious focal consolidation. Electronically Signed by Jeramie Cerna MD 07/02/2019 08:26 A
[2019-07-02 08:54] LABS: CREATININE FOR GFR 1.34 MG/DL (0.55-1.30); GLOMERULAR FILTRATION RATE 47.9 (>60); MAGNESIUM LEVEL 2.1 MG/DL (1.8-2.4); PHOSPHORUS LEVEL 3.9 MG/DL (2.5-4.9)
[2019-07-02] MEDS: PRENATAL VITAMINS CHEWABLE TABLET PO SCH (09:00)
[2019-07-02] MEDS: DOCUSATE SODIUM 100 MG CAP PO SCH ×2 (09:00→20:00)
[2019-07-02] MEDS: CHLORHEXIDINE GLUCONATE 0.12 % 15ML UDC (PERIDEX ORAL RINSE) MT SCH (09:33)
[2019-07-02] MEDS: PANTOPRAZOLE 40MG INJ (PROTONIX) (C9113) IV SCH (09:34)
[2019-07-02] MEDS: CALCIUM GLUCONATE 1,000 MG in D5W MINI-BAG PLUS 100 ML IV SCH ×2 (10:18→12:25)
--- NOTE | 2019-07-02 12:00 | CCN ---
DATE: 07/01/2019 I was asked by Dr. Mcdonough to emergently participate in resuscitation of Ms. Pérez. Ms. Pérez is a 33-year-old female, who underwent an emergency (C) section earlier this morning. She was apparently 8 cm dilated, and the baby looked poorly, so they had to proceed to a section. Later, she became tachycardiac and hypotensive and was taken back to the operating room. There was no evidence of intra-abdominal bleed, but she had the appearance of retroperitoneal bleed. She received multiple transfusions of pRBCs and FFP while in the labor and delivery operating room. The team, including myself, moved her from labor and delivery (L and D) down to CT scan, where an abdominal/pelvic CT scan appeared to confirm a large retroperitoneal bleed. She was brought up to the intensive care unit and a cordis was placed as well as a femoral arterial line. She continued to require significant blood products. She also developed both a mixed metabolic respiratory acidemia and adjustments were made with the ventilator to eliminate the respiratory component. She intermittently was on vasopressors with our goal being a MAP between 60 and 65 and/or a systolic pressure around 90 to keep her adequately perfused but not high enough to cause a rebleeding. Later, the official read on the CT scan became available, which suggested possible blood around the right kidney and possible laceration. It was felt important that we make certain there was not vessel damage, and so she went to down to radiology for CTA abdomen and pelvis. Just prior to going down to the procedure, she had a generalized seizure-type activity and was given 2 mg of Ativan. Because of the seizure activity, a head CT scan was also done which did not show any evidence of an acute intracranial bleed. The CT pelvis angiogram did not indicate any site of vascular bleeding. Delayed films seemed to show minimal blush within the area of hemorrhage, but no clear blush within the kidney itself. Further delayed scans did not show any ureteral etiology. It was felt best to go to interventional radiology (IR) and make certain there was no small vessel bleeding that would benefit from an embolization. In the meantime, we had contacted Dr. Mahmood for continuous renal replacement therapy (CRRT) and, therefore, a catheter was placed while in IR. Ms. Pérez has not been conscious since she was in L and D the second time. She did, I believe, one time, get 2 mg of Versed after she arrived in the intensive care unit for tachycardia with question of whether that was secondary to not having any sedation. Her blood pressure at that time was acceptable. She also received 2 mg of Ativan for seizure activity. There was a time period when she appeared to be shivering, and her temperature was 96.4, so she was placed on Anastacio Hugger. The goal was to keep her temperature normal. She has made no spontaneous motions/movements. PAST MEDICAL HISTORY: Anxiety, depression, childhood hypothyroidism, status post 07/01/2019. FAMILY HISTORY: Notable for diabetes, heart disease, and Down syndrome and autism. SOCIAL HISTORY: She is . Per the records, she is a nonsmoker. There is no alcohol or drug usage. REVIEW OF SYSTEMS: Unattainable, secondary to intubation. ALLERGIES: SULFA, AMOXICILLIN, CLAVULANIC ACID, and IBUPROFEN. I do not know what her reactions are to these medications. MEDICATIONS ON ADMISSION: - Wellbutrin 300 mg by mouth daily - omeprazole 20 mg by mouth daily as needed - vitamin one by mouth daily PHYSICAL EXAMINATION: General: Ms. Pérez is intubated and synchronous with the ventilator but not overbreathing it. Vital signs: Temperature 96.4. Pulse ranged from 140s to 160s, blood pressure ranged from one-teens over 40s low 50s to transiently 50s over 20s. Respiratory rate was at the set vent rate, which was initially 14 and then 24. SpO2 was 97-100% on FiO2 of 0.3 - 0.4. HEENT: Anicteric, pupils 4 mm and reactive. Nares: Patent bilaterally, moist mucosa. Oropharynx endotracheal (ET) tube in place. Moist mucosa. Neck: Supple, without jugular venous distention (JVD) or thyromegaly, trachea is midline. Lymph: Without cervical or supraclavicular lymphadenopathy. Lungs: Symmetric excursion, good air entry, no wheeze, rhonchi, crackle on tidal excursion. Normal I:E. No accessory muscle usage or retractions. Abdomen: Diminished bowel sounds. Soft, initially with increasing firmness in the right lower portion. Obstetrics/gynecology (R[employer] CLIPPER) following the fundus size. No vaginal bleeding noted. Extremities: Cool. Delayed capillary refill. Palpable pedal pulses bilaterally. No clubbing or cyanosis. Neurologic: Pupils equal, round, and reactive to light, no spontaneous movement. She did not overbreathe her vent. Skin: Extremely pale. LABORATORY DATA: Most recent CBC was some 1434 hours and showed a hemoglobin of 6.8, hematocrit 20.8, platelet count of 55,000, and white blood cell count 15,800 with a differential of 67% neutrophils, 24% lymphocytes, and 7% monocytes. Chemistries from the same time shows sodium 141, potassium 5.4, chloride 110, bicarbonate 13, anion gap 17, BUN 16, creatinine 1.4, glucose 231, calcium 6.9, ionized calcium 3.9, total bilirubin 0.4, AST 17, ALT 11, alkaline phosphatase 47, CK 349, CK-MB 5.9, troponin I of 0.23 with a peak troponin I of 0.64 at 1330 hours, total protein 3.0, and albumin 1.4. INR from the same time period was 1.54, PTT 18.4, APTT 36.5. Arterial blood gas on the same time was 7.311/25/149 with measured saturation of 99% and a base excess of -12.9. A subsequent blood gas a half an hour later was 6.96/46/126 with a measured saturation 97.1. I do not believe the base excess reported. I think it is likely negative, not positive. I think it was likely -20.2, not +20.2. After some ventilatory adjustments, repeat arterial blood gas was 7.122/28.6/168.2, with a measured saturation 98.8 and with a base excess of -18.6. In regards to intake and output (I and O), thus far, she has received multiple blood products today, and I cannot, at this time, find a complete record. She has received a least 13 units packed red blood cells (PRBCs), at least 8 units of fresh frozen plasma (FFP), and at least 2 platelets. I reviewed her chest x-ray as well as report from earlier today. That showed normal-appearing cardiac silhouette and pulmonary vascular shadows. Normal-appearing mediastinal regions. No acute infiltrates. Normal inflation. The ET tube and right internal jugular (IJ) lines were in appropriate position. I reviewed her abdominal/pelvis CT scan report as well as a CT angiogram report and was present when both of these scans were done. I agree with the radiology reads. IMPRESSION: 1. Acute respiratory failure postoperatively, secondary to hemorrhagic shock. 2. Hemorrhagic shock, secondary to retroperitoneal bleed. 3. Acute kidney failure, secondary to shock. 4. Anion gap metabolic acidemia, likely secondary to hypotension. 5. Seizures, no evidence of acute brain bleed. Differential would include toxic metabolic. 6. Postoperative #0, status post emergency section. RECOMMENDATIONS: 1. Ms. Pérez is currently in interventional radiology (IR). Assuming there is no vascular abnormality found, we will continue to appropriately transfuse products. Her bleed appears to have slowed down, though it is clear she still has ongoing bleeding and is still going to require further transfusions. 2. Given her tachycardia, we are using vasopressin and phenylephrine to try to maintain a MAP between 60 and 65 when products are not enough. The goal is not to have her hypertensive as we want to allow time for the bleed to tamponade. 3. Renal will be starting CRRT. 4. Will use as-needed Ativan if there are further seizures. Hopefully, as her metabolic abnormalities correct, this will no longer occur. 5. We will also try to keep her temperature normal. She is getting intravenous products, so I suspect she will, at times, require a Anastacio Hugger intermittently for the foreseeable future as she is likely has some difficulties with hypothermia. 6. Calcium will need to be monitored as I suspect she will need periodic dosages of calcium. Will defer this to nephrology. Critical care time: Over 4.5 hours at bedside with all time spent at bedside. That does not include any procedure time. JONE
[2019-07-02 12:16] LABS: IONIZED CALCIUM 4.3 MG/DL (4.5-5.3)
[2019-07-02 12:22] LABS: HEMATOCRIT 27.3 % (36.0-47.0); HEMOGLOBIN 9.8 g/dl (12.0-15.5); MEAN CORPUSCULAR HEMOGLOBIN 30.3 pg (27.0-33.0); MEAN CORPUSCULAR HGB CONC 35.9 g/dl (32.0-36.5); MEAN CORPUSCULAR VOLUME 84.5 fl (80.0-96.0); PLATELET COUNT, AUTOMATED 60 10^3/uL (150-450); RED BLOOD COUNT 3.23 10^6/uL (4.00-5.40); WHITE BLOOD COUNT 14.8 10^3/uL (4.0-10.0)
[2019-07-02 12:30] LABS: ABG BASE EXCESS -2.5 (-2.0-2.0); ABG HCO3 21.5 MEQ/L (22.0-26.0); ABG O2 SATURATION 97.7 % (95.0-99.0); ABG PARTIAL PRESSURE O2 101.8 mmHg (75.0-100.0); ABG STANDARD HCO3 22.4 MEQ/L (22.0-26.0); ABG TOTAL CO2 22.5 MEQ/L (22.0-29.0); ABG pH (ARTERIAL) 7.418 UNITS (7.350-7.450)
[2019-07-02 12:42] LABS: CALCIUM LEVEL 7.3 MG/DL (8.5-10.1); CREATININE FOR GFR 1.37 MG/DL (0.55-1.30); GLOMERULAR FILTRATION RATE 46.7 (>60); MAGNESIUM LEVEL 2.1 MG/DL (1.8-2.4); PHOSPHORUS LEVEL 4.1 MG/DL (2.5-4.9); POTASSIUM SERUM 4.2 MEQ/L (3.5-5.1)
[2019-07-02] MEDS ORDERED: FUROSEMIDE 40 MG/4 ML VIAL (J1940) IV ONE (13:30)
[2019-07-02] MEDS: buPROPion **XL** TABLET 150MG (WELLBUTRIN XL) PO SCH (14:10)
[2019-07-02] MEDS: CALCIUM GLUCONATE 1,000 MG in NS 100 ML IV SCH ×4 (14:15→20:00)
[2019-07-02] MEDS: MORPHINE 4 MG/ML 1ML VIAL/SYRINGE (J2270) IV PRN ×4 (14:17→22:43)
--- NOTE | 2019-07-02 14:58 | CCN ---
DATE: 07/02/2019 NOTE Ms. Pérez remains critically ill with acute respiratory failure secondary to hemorrhagic shock leading to mechanical ventilation. She also has acute kidney failure leading to CRRT. Later yesterday afternoon it was found that she had a small artery that was bleeding that was embolized. Following that procedure she did very well with no significant blood loss. She was weaned off vasopressors around the time of the embolization and has remained off vasopressors. She has had no further hemodynamic instability. She had not been spontaneously moving or overbreathing the ventilator. Later last evening, she started overbreathing the ventilator and also started following commands. At that time, continuous sedation was introduced as we needed her to be still over night to prevent rebleeding. Propofol was started with a goal of a [place] 4-5. We also placed her on scheduled morphine knowing that we would not be able to sense when she was having pain. On her sedation holiday this morning she is alert, awake and following commands. She is nodding appropriately to questions. She remains on CRRT but has started making some urine. OBJECTIVE: PHYSICAL EXAMINATION: GENERAL: Ms. Pérez was awake and alert and synchronous with the ventilator. After extubation she was very comfortable on nasal cannula and was answering questions appropriately. VITAL SIGNS: Temperature 98.1 with a Anastacio hugger, pulse 131, respiratory rate 20, blood pressure 114/70 NIBP and 163/70 arterial, SPO2 93% on 4 liters per nasal cannula. HEENT: Anicteric. Nares patent bilaterally. Oropharynx clear. No lesions. Moist mucosa. NECK: Supple, without JVD, without thyromegaly or masses, trachea is midline. LYMPH: Without cervical or supraclavicular lymphadenopathy. LUNGS: Symmetric excursion, good air entry, no wheeze, rhonchi or crackle on tidaled excursion. Normal I:E. No accessory muscle usage or retractions. ABDOMEN: Mild distension, still soft, a little firmer on the right side. Very hypoactive bowel sounds. Incision clean and intact. EXTREMITIES: Warm and well-perfused, without clubbing or cyanosis, she has significant anasarca. Palpable pedal pulses bilaterally. NEUROLOGIC: Alert, awake and oriented times three. No focal deficits. Psychiatric: She is very tearful today. LABORATORY DATA: CBC shows a hemoglobin of 9.8, hematocrit 27.3, platelet count 60,000, white blood cell count 14,800. Chemistry shows sodium 140, potassium 4.2, chloride 108, bicarbonate 23, anion gap 9, BUN 13, creatinine 1.4, glucose 111, calcium 7.3, ionized calcium 4.3, phosphorus 4.1, magnesium 2. Arterial blood gas this morning on assist control with a rate of 24, tidal volume 420, PEEP of 5, and FiO2 of 0.4 was 7.47/29/144 with a measured saturation of 99%, and an FiO2 of -2.50. I reviewed her chest x-ray as well as the report. That x-ray showed normal appearing cardiac silhouette and pulmonary vascular shadows. Normal-appearing mediastinal region. No acute infiltrates. Small inhalation. ET tube and right IJ in good position. Yesterday's intake and output were 2889 in and 1780 out making a positive 1109. Thus far today 706 in and 290 out making her positive 416. IMPRESSION: 1. Acute respiratory failure postoperative secondary to hemorrhagic shock. 2. Hemorrhagic shock secondary to retroperitoneal bleed. 3. Acute kidney failure secondary shock, on CRRT. 4. Anion gap metabolic acidemia, resolved. 5. Seizures, no recurrence, likely toxic metabolic. 6. Postoperative day 1, status post emergent section. 7. Depression/anxiety as outpatient. RECOMMENDATIONS: 1. Will go onto a weaning trial. 2. I have spoken with Dr. Pena regarding her lines with plans, at this time, to return to IR tomorrow for removal of the introducer and femoral arterial line. 3. I have spoken to Dr. Mahmood. He is going to start pulling fluid and plans on considering discontinuing CRRT this evening. 4. I spoke to both Dr. Pena and Dr. Mahmood that if the decision is to continue CRRT, I would request that they move the catheter to either subclavian or IJ site so that we can as start to have her mobilize if she is successfully extubated. ADDENDUM: Ms. Pérez underwent a weaning trial of with a pressure support of 5 and a PEEP of 5, and FiO2 of 0.4. On trial, she consistently had spontaneous tidal volumes in the 550-650 range. Her rapid shallow breathing index was in the 40s. An arterial blood gas on these settings was 7.42/34/102 with a measured saturation 98% and a base excess of -2.5. She was successfully extubated. Now, over an hour later, she is resting comfortably on 4 liters. She indicates no discomfort. Her approached me and states that she needs to get started on her outpatient anxiety/depression medications as soon as possible. She spoke to me that she is concerned that there is only certain brands that she can take without being nauseous. Medication is Wellbutrin XL 300 daily. We agreed that she would try the hospital brand and if she was nauseous we had medications we could give her and then we would ask her to bring in her home supply if she did not tolerate this medication. I have also spoken with respiratory regarding hyperinflation therapy. This is going to be very important given that she is going to be supine and not have much mobility until the femoral lines are removed. Critical care time 45 minutes not including procedures. JONE
[2019-07-02] MEDS ORDERED: CALCIUM GLUCONATE 1,000 MG in NS 100 ML IV SCH (15:00)
[2019-07-02 17:40] LABS: IONIZED CALCIUM 4.3 MG/DL (4.5-5.3)
[2019-07-02 17:48] LABS: HEMATOCRIT 26.3 % (36.0-47.0); HEMOGLOBIN 9.2 g/dl (12.0-15.5); MEAN CORPUSCULAR HEMOGLOBIN 29.6 pg (27.0-33.0); MEAN CORPUSCULAR VOLUME 84.6 fl (80.0-96.0); RED BLOOD COUNT 3.11 10^6/uL (4.00-5.40); WHITE BLOOD COUNT 16.9 10^3/uL (4.0-10.0)
[2019-07-02 17:49] LABS: PLATELET COUNT, AUTOMATED 63 10^3/uL (150-450)
[2019-07-02 18:19] LABS: CALCIUM LEVEL 7.3 MG/DL (8.5-10.1); CREATININE FOR GFR 1.29 MG/DL (0.55-1.30); GLOMERULAR FILTRATION RATE 50.1 (>60); MAGNESIUM LEVEL 2.1 MG/DL (1.8-2.4); PHOSPHORUS LEVEL 3.7 MG/DL (2.5-4.9); POTASSIUM SERUM 3.9 MEQ/L (3.5-5.1)
[2019-07-02] MEDS: PERCOCET 5MG/325MG TAB PO PRN (20:00)
[2019-07-02] MEDS ORDERED: FUROSEMIDE 100 MG/10 ML VIAL (J1940) IV ONE (22:30)
[2019-07-03] VITALS (29 sets, daily range): BP systolic 103–167; BP diastolic 55–76
[2019-07-03] MEDS: MORPHINE 4 MG/ML 1ML VIAL/SYRINGE (J2270) IV PRN ×3 (05:19→20:50)
[2019-07-03 05:29] LABS: IONIZED CALCIUM 4.3 MG/DL (4.5-5.3)
--- NOTE | 2019-07-03 05:37 | IPN ---
DATE OF VISIT: 07/02/2019 SUBJECTIVE: The patient was seen and examined at the bedside in the morning in the intensive care unit (ICU), the last 24-hour events were noted. The patient got the angiogram inquiring of the bleeding vessels in the abdomen last night and ever since her hemoglobin has been stable. She was started on continuous veno-venous hemodialysis filtration (CVVHDF) last night around 08:00 p.m. She is tolerating the CVVHDF well. The patient was extubated today morning. She has significant anasarca and she is on nasal cannula at this time. She is not requiring any vasopressors at this time and she is hemodynamically stable. The patient started making about 20 mL of urine per hour in the morning as well. OBJECTIVE: Vital signs: Temperature is 97 degrees Fahrenheit, blood pressure 123/73, pulse is 110, respiratory of 20, saturating 98% on nasal cannula. Intake and output: According to 24 of intake and output sheet the patient has 800 mL positive fluid balance at the time the CVVHDF was started. Bedside weight is not available and the patient is making around 20 mL of urine an hour. PHYSICAL EXAMINATION: General: The patient is awake. She has been extubated now, she is wearing nasal cannula. She answers a few questions and follows commands. Head and neck exam: Extraocular muscles intact. Pupils equally round and reactive to light. Neck is supple. She has a right internal jugular (IJ) triple lumen catheter. Cardiovascular: S1, S2, she has generalized anasarca. Respiratory: Chest is clear to auscultation bilaterally. I was not able to listen to the lungs in the bed because she is laying down. Abdomen: Generalized tenderness, surgical scar is visible. Bowel sounds positive. Musculoskeletal: No clubbing or cyanosis. She has 2+ edema of the bilateral lower extremities. Central nervous system (RESERVATIONS AGENT): The patient is awake and alert. She is following commands and she is able to communicate. Arteriovenous (AV) access, the patient has a left femoral hemodialysis catheter which is being used for CVVHDF. LABORATORY REVIEW: CBC done today morning showed WBC 13.4, hemoglobin is 10, platelets are 56. Basic Metabolic Profile (BMP) in the morning showed sodium 141, potassium is 4, chloride 108, bicarb 23, BUN 15, creatinine 1.34, phosphorus 3.9, magnesium 2.1. IMAGING STUDIES: A chest x-ray done today morning showed lines and tubes in satisfactory position. CURRENT INPATIENT MEDICATIONS: The patient's medications were all reviewed by me. She is not getting any IV fluids. She is getting electrolyte repletion according to CVVHDF protocol. I gave the patient a dose of Lasix 80 mg IV times one dose today morning. ASSESSMENT/PLAN: 1. Acute renal failure. The patient initially had acute oliguric renal failure because of hemorrhagic shock. However, the patient is nonoliguric and I gave the patient a dose of Lasix as well. If the patient responds well to the Lasix I would hopefully stop the continuous veno-venous hemodialysis filtration (CVVHDF). Continue the dialysis for now. I would start pulling fluid according to mean arterial pressure pressures. I have renewed orders and I have discussed this with the patient's nurse at the bedside as well. 2. Metabolic acidosis. The patient's acidosis is being controlled with dialysis, bicarb level has improved within the acceptable range now. Hopefully once her renal function starts improving she will be able to maintain the acid base balance. 3. Status post acute hemorrhagic shock. The patient is off the pressors at this time. She got coiling of the bleeding vessels, official report is still pending at this time. She has not requiring any more blood transfusions. 4. Hypocalcemia. The patient is getting calcium intravenously (IV) according to CVVHDF protocol. 5. Status post vent dependent respiratory failure. The patient has been extubated. She has generalized anasarca. I would remove some fluid before I stopped the CVVHDF. I have also a dose of Lasix, another dose to be given in the evening. 6. Status post emergent section. The patient is clinically getting more stable now. The rest of the management is as per the surgical team and gynecology office. Total critical care time spent in the management of this patient today morning in the intensive care unit (ICU) was 45 minutes.
[2019-07-03 05:42] LABS: HEMOGLOBIN 7.7 g/dl (12.0-15.5); MEAN CORPUSCULAR HEMOGLOBIN 30.1 pg (27.0-33.0); MEAN CORPUSCULAR VOLUME 85.9 fl (80.0-96.0); RED BLOOD COUNT 2.56 10^6/uL (4.00-5.40); WHITE BLOOD COUNT 17.8 10^3/uL (4.0-10.0)
[2019-07-03 05:44] LABS: PLATELET COUNT, AUTOMATED 65 10^3/uL (150-450)
[2019-07-03 06:00] LABS: CALCIUM LEVEL 7.7 MG/DL (8.5-10.1); CREATININE FOR GFR 1.28 MG/DL (0.55-1.30); GLOMERULAR FILTRATION RATE 50.5 (>60); PHOSPHORUS LEVEL 2.7 MG/DL (2.5-4.9); POTASSIUM SERUM 3.4 MEQ/L (3.5-5.1)
[2019-07-03] MEDS: PANTOPRAZOLE 40MG INJ (PROTONIX) (C9113) IV SCH (08:52)
[2019-07-03] MEDS: PERCOCET 5MG/325MG TAB PO PRN ×4 (08:53→22:45)
[2019-07-03] MEDS: DOCUSATE SODIUM 100 MG CAP PO SCH ×2 (08:53→20:49)
[2019-07-03] MEDS: buPROPion **XL** TABLET 150MG (WELLBUTRIN XL) PO SCH (08:53)
[2019-07-03] MEDS: PRENATAL VITAMINS CHEWABLE TABLET PO SCH (09:00)
[2019-07-03 09:15] LABS: HEMATOCRIT 21.6 % (36.0-47.0); HEMOGLOBIN 7.4 g/dl (12.0-15.5)
[2019-07-03] MEDS ORDERED: KCL 20MEQ IN 100ML SWI (KRUN) 20 MEQ in APPROPRIATE DILUENT 1 EA IV ONE ×2 (10:30)
[2019-07-03 10:48] LABS: C REACTIVE PROTEIN QUANTITATIV 16.6 MG/DL (0.00-0.30)
[2019-07-03] MEDS: PIPERACILLIN/TAZOBACTAM SOD 3.375 GM in D5W MINI-BAG PLUS 50 ML IV SCH ×3 (11:14→22:45)
[2019-07-03] MEDS: KCL 20MEQ IN 100ML SWI (KRUN) 20 MEQ in APPROPRIATE DILUENT 1 EA IV SCH ×4 (13:07→18:30)
--- NOTE | 2019-07-03 14:44 | CR.PDOC ---
General Date of Consultation: Jul 03, [address] Pena HPI: Vin Pérez is a 33-year-old female who is 1, who presented on June 30, 2019 with term labor. She needed to be taken to the operating room because of distress requiring emergency section. Following the the patient was found to be hypotensive. Her hemoglobin dropped, she was found to have retroperitoneal bleed. She has required multiple blood transfusions. Vascular Surgery was consulted re retroperitoneal bleed. Pt states pain is controlled currently. Denies any Headache, Chest Pain, Shortness of breath, cough, palpitations. 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 No acute distress. Alert and oriented x 3. HEENT: Normocephalic, atraumatic. Conjunctiva without injection. Moist mucous membranes. CHEST: Regular rate and rhythm, +S1, +S2 LUNGS: Clear to auscultation bilaterally. No wheezes, rales, or rhonchi. ABD: Round, soft, non-tender, non-distended. +Bowel sounds. EXT: Pulses 2+ bilaterally dorsalis pedis and radial. No lower extremity edema appreciated. SKIN: Cement, dry, warm. Capillary refill <2sec. No rashes. NEURO: Alert and oriented x 3. Cranial nerves III-XII are intact. No focal deficits appreciated. A&P: 1. Retroperitoneal hematoma. S/P angiogram 07/01/19 with coiling as per Dr Pena. S/P 18 u PRBC. SBP 122-155. Hgb 7.4 this AM. Continue to Monitor. Vital Signs/I&O Vital Signs Date Time Temp Pulse Resp B/P (MAP) Pulse Ox O2 Delivery O2 Flow Rate FiO2 07/03/19 14:21 22 07/03/19 14:15 99.7 116 135/68 (95) 94 3.0 163/74 07/02/19 12:36 40 07/02/19 12:24 Ventilator I&O- Last 24 Hours up to 6 AM 07/03/19 06:00 Intake Total 1070 ml Output Total 3309 ml Balance -2239 ml Laboratory Data Labs 24H Laboratory Tests 2 07/02/19 17:29: Nucleated Red Blood Cells % (auto) 0.0, Immature Platelet Fraction 6.7, Activated Partial Thromboplast Time 26.3, Anion Gap 9, Glomerular Filtration Rate 50.1L, Blood Urea Nitrogen 14, Creatinine 1.29, Sodium Level 139, Potassium Level 3.9, Chloride Level 106, Carbon Dioxide Level 24, Calcium Level 7.3L, Whole Blood Ionized Calcium 4.3L, Phosphorus Level 3.7, Magnesium Level 2.1 07/03/19 04:59: Activated Partial Thromboplast Time 25.9, Anion Gap 9, Glomerular Filtration Rate 50.5L, Blood Urea Nitrogen 13, Creatinine 1.28, Sodium Level 141, Potassium Level 3.4L, Chloride Level 106, Carbon Dioxide Level 26, Calcium Level 7.7L, Whole Blood Ionized Calcium 4.3L, Phosphorus Level 2.7#, C-Reactive Protein, Quantitative 16.60H 07/03/19 05:00: Nucleated Red Blood Cells % (auto) 0.1H CBC/BMP Laboratory Tests 07/02/19 17:29 Red Blood Count 3.11 L, Mean Corpuscular Volume 84.6, Mean Corpuscular Hemoglobin 29.6, Mean Corpuscular Hemoglobin Concent 35.0, Red Cell Distribution Width 14.7 H, Calcium Level 7.3 L 07/03/19 04:59 Calcium Level 7.7 L 07/03/19 05:00 Red Blood Count 2.56 L, Mean Corpuscular Volume 85.9, Mean Corpuscular Hemoglobin 30.1, Mean Corpuscular Hemoglobin Concent 35.0, Red Cell Distribution Width 14.7 H 07/03/19 08:45 Allergies Coded Allergies: Sulfa (Sulfonamide Antibiotics) (Verified Adverse Reaction, Intermediate, UTI, YEAST INFECTION, YELLOWED GUMS, FAINTING , 06/30/19) amoxicillin (Verified Adverse Reaction, Intermediate, DIARRHEA, N IGHTMARES, 06/30/19) clavulanic acid (Verified Adverse Reaction, Intermediate, DIARRHEA, NIGHTMARES, 06/30/19) ibuprofen (Verified Adverse Reaction, Intermediate, GI BLEED, NAUSEA, HEADACHES, 06/30/19) NAPROXEN [place] Home Medications Scheduled Bupropion HCl (Wellbutrin Xl) 300 Mg Tab.er.24h, 300 MG PO DAILY for 30 Days, #30 (Reported) No.137/Iron/Folic Acd ( Vitamin Tablet) 1 Each Tablet, 1 TAB PO DAILY, (Reported) Scheduled PRN Omeprazole (Omeprazole) 10 Mg Capsule.dr, 20 MG PO DAILYPRN PRN for SEE LABEL COMMENTS for 30 Days, (Reported) Janeth Hidalgo Jul 03, 2019 14:44
[2019-07-03] MEDS: FUROSEMIDE 100 MG/10 ML VIAL (J1940) IV SCH (16:10)
[2019-07-03 17:49] LABS: HEMATOCRIT 27.5 % (36.0-47.0); HEMOGLOBIN 9.6 g/dl (12.0-15.5)
--- NOTE | 2019-07-03 18:30 | IPN ---
DATE: 07/03/2019 SUBJECTIVE: Patient was seen and examined at the bedside today morning in the intensive care unit (ICU). The last 24-hour events were noted. I was actually called for each blood draw. During continuous venovenous hemodialysis filtration (CVVHDF), her continuous renal replacement therapy (CRRT) was stopped last night at the beginning of the second shift after fluid removal. She was also given a dose of Lasix yesterday and she is responding very well to the intravenous (IV) diuretics. Patient is awake. She has not been started on feeding yet. Her hemoglobin dropped to 7.7 today. ICU team is going to transfuse two more units of packed red blood cells (PRBC) transfusion. Electrolyte levels are within the acceptable limits and despite stopping the CVVHDF last night, her creatinine is stable today morning. OBJECTIVE: VITAL SIGNS: Temperature is 99.5 degrees Fahrenheit, blood pressure 128/67, pulse is 113, respiratory rate of 20, saturating 94% on nasal cannula at 3 liters. INTAKE AND OUTPUT: Urine output recorded is 925 mL yesterday, 2.5 liters so far today since overnight. Weight in the bed scale is not available. PHYSICAL EXAMINATION: GENERAL: Patient is awake and alert, laying in bed wearing nasal cannula, follows commands and able to answer questions. HEAD AND NECK EXAM: Extraocular muscles intact. Pupils equally round and reactive to light. Mucous membranes are moist. Neck is supple. Right internal jugular (IJ) triple lumen catheter was noted. CARDIOVASCULAR: S1, S2. Generalized anasarca was noted. RESPIRATORY: Chest is clear to auscultation bilaterally anteriorly. No active rales or rhonchi. ABDOMEN: Soft, obese, generalized tenderness on deep palpation, especially in the right side suprapubic region. (C) section scar was noted. MUSCULOSKELETAL: No clubbing or cyanosis. 2+ edema of the bilateral lower extremities was noted. She has lines in both the groins. 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 She follows commands and moves extremities. LABORATORY REVIEW: Complete blood count (CBC) showed a WBC of 17.8, hemoglobin is 7.7, platelets 65. Basic metabolic panel (BMP) showed sodium 141, potassium 3.4, chloride 106, bicarbonate 26, BUN 13, creatinine is 1.2. CURRENT INPATIENT MEDICATIONS: Patient's medications were all reviewed by me. She was given potassium chloride (KCl) 20 mEq IV times one dose in the morning. I have started her on Lasix 60 mg IV every 8 hours. ASSESSMENT AND PLAN: 1. Acute renal failure. Patient is nonoliguric at this time and CVVHDF was stopped yesterday. She is responding to the IV diuretics. Continue to monitor the renal profile for now off dialysis. No need of regular dialysis today. 2. Generalized anasarca. It is secondary to aggressive IV fluid hydration and blood products. Blood pressures are acceptable. I have started her on Lasix 60 mg IV every 8 hours with a negative fluid balance target of 2.5 liters a day. 3. Hypokalemia. It is secondary to diuresis. Patient was given potassium chloride 20 mEq IV times one dose today. I am going to give her potassium chloride 20 mEq IV with each Lasix infusion as well. 4. Anemia secondary to intra-abdominal bleed. Patient is status interventional radiology (IR) embolization of the bleeding vessels. Hemoglobin again dropped to 7.7. She is going to get 2 units of PRBC transfusion today. 5. Status post emergent . The patient is currently empirically on IV Zosyn 3.375 grams every 6 hours. Duration of antibiotics is as per surgical team and critical care team. Total critical care time spent in the management of this patient today morning in the ICU is 40 minutes and that does not include any procedures.
--- NOTE | 2019-07-03 20:15 | CCN ---
DATE: 9=07/03/2019 NOTE: Ms. Pérez remains critically ill after she had massive hemorrhage on 07/01. HISTORY OF PRESENT ILLNESS: She was able to be extubated yesterday morning and has done well off mechanical ventilation. She remained on CRRT until late last evening and that has been discontinued. She has remained hemodynamically stable since discontinuing that device and is making urine. However, she has had over a gram hemoglobin loss over the last 12 hours. No significant vaginal bleeding. No other clinical site of bleeding other than the known retroperitoneal hemorrhage. She had complains of pain anytime she moves her lower extremities. She is limited in how much movement she can do at this time because of central lines that are in both groins. She has taken ice chips and sips without difficulty. She denies any shortness of breath or chest pain. No cough. OBJECTIVE: PHYSICAL EXAMINATION: General: Ms. Pérez is lying in bed and appears comfortable. She can complete full sentences. No cough during the evaluation. Vital signs: Temperature 99.3 which is her T-max, pulse 115, respiratory rate 19, blood pressure 130/63 with a MAP of 86. SPO2 95% on FiO2 of 3 liters. HEENT: Anicteric, PERRL. Nares: Patent bilaterally, moist mucosa. Oropharynx clear. No lesions. Moist mucosa. Neck: Supple, without JVD, thyromegaly or masses, trachea is midline. Lymph: Without cervical or supraclavicular lymphadenopathy. Lungs: Symmetric excursion, good air entry. No wheeze, rhonchi or crackle on tidal excursion. Normal I:E. No accessory muscle usage or retractions. Cardiovascular: Tachycardiac, regular rhythm, normal S1-S2, no murmur, rub or gallop appreciated. Abdomen: Distended, soft, decreased firmness on the right. Generalized tenderness. No rebound. C- section incision with small amount of drainage in the right corner. Extremities: Warm and well profuse, without clubbing or cyanosis. Palpable pedal pulses bilaterally. She remains with generalized anasarca that is decreased from yesterday. LABORATORY DATA: CBC from this morning showed a hemoglobin of 7.7, hematocrit 22.0, platelet count 65,000, white blood cell count 17,800. Last evenings white blood count (WBC) was 16.9, hemoglobin 9.2, hematocrit 26.3. A repeat hemoglobin and hematocrit approximately 4 hours later showed a hemoglobin 7.4 and hematocrit of 21.6. Chemistries from this morning showed sodium 141, potassium 3.4, chloride 106, bicarbonate 26, anion gap 9, BUN 13, creatinine 1.3, glucose 136, calcium 7.7, INH calcium 4.3, phosphorus 2.7. PTT was 25.9. Yesterday's input and output were 1766 in and 1876 out making her a negative 113.4 of the output 925 was urine. Thus far today 640 in and 2520 out making her negative 1875 with all of the output urine. IMPRESSION: 1. Acute hypoxic respiratory failure. She is doing well post extubation yesterday, though she still requires some level of oxygen. I suspect part of this is secondary to atelectasis being the cause of her abdominal distension and some fluid overload. She is appropriately replaced. 2. Hemorrhagic shock secondary to retroperitoneal likely secondary to small artery bleed. She has had a hemoglobin drop over the past 24 hours and I suspect that is more "oozing" related to her large hematoma particularly in the setting of low platelets. She does not appear to have an a significant acute bleed this time. 3. Acute kidney failure secondary to shock, now off CRRT and making urine. 4. Postoperative day #2, status post emergent section 5. Depression/anxiety as outpatient, on Wellbutrin. RECOMMENDATIONS: 1. We will transfuse 2 units as I anticipate that she will continue to have slow drops to her hemoglobin. 2. Will start antibiotics at the suggestion of Dr. Quinn as he is concerned there could have been some bacterial contamination. Will want to cover typical vaginal bacteria; she was started on Zosyn. 3. We will replace her electrolytes as needed. 4. We will start feeding and advance diet as tolerated 5. It is my understanding that she will have all of her femoral lines discontinued and IR later this afternoon. Hopefully that will happen and we can increase her mobility. 6. I communicated with both Dr. Quinn and Dr. Rapp regarding these plans. Critical care time 35 minutes not including procedure time. [facility]
[2019-07-04] VITALS (24 sets, daily range): BP systolic 106–161; BP diastolic 55–82
[2019-07-04] MEDS: KCL 20MEQ IN 100ML SWI (KRUN) 20 MEQ in APPROPRIATE DILUENT 1 EA IV SCH ×4 (01:02→06:47)
[2019-07-04] MEDS: FUROSEMIDE 100 MG/10 ML VIAL (J1940) IV SCH ×3 (01:20→16:03)
[2019-07-04 05:04] LABS: HEMOGLOBIN 8.9 g/dl (12.0-15.5); MEAN CORPUSCULAR HEMOGLOBIN 29.1 pg (27.0-33.0); MEAN CORPUSCULAR HGB CONC 34.2 g/dl (32.0-36.5); RED BLOOD COUNT 3.06 10^6/uL (4.00-5.40); WHITE BLOOD COUNT 24.9 10^3/uL (4.0-10.0)
[2019-07-04 05:05] LABS: PLATELET COUNT, AUTOMATED 80 10^3/uL (150-450)
[2019-07-04] MEDS: PIPERACILLIN/TAZOBACTAM SOD 3.375 GM in D5W MINI-BAG PLUS 50 ML IV SCH ×4 (05:21→23:54)
[2019-07-04 05:32] LABS: BLOOD UREA NITROGEN 16 MG/DL (7-18); CARBON DIOXIDE LEVEL 31 MEQ/L (21-32); CHLORIDE LEVEL 110 MEQ/L (98-107); CREATININE FOR GFR 1.04 MG/DL (0.55-1.30); GLOMERULAR FILTRATION RATE > 60.0 (>60); GLUCOSE, FASTING 121 MG/DL (70-100); POTASSIUM SERUM 3.4 MEQ/L (3.5-5.1); SODIUM LEVEL 144 MEQ/L (136-145)
[2019-07-04] MEDS: MORPHINE 4 MG/ML 1ML VIAL/SYRINGE (J2270) IV PRN (05:57)
[2019-07-04] MEDS: PERCOCET 5MG/325MG TAB PO PRN ×3 (06:00→19:13)
[2019-07-04] MEDS ORDERED: BUPIVACAINE HCL 0.5% 10 ML VIAL As Ordered ONE (07:05)
[2019-07-04] MEDS ORDERED: fentaNYL 100 MCG/2 ML INJECTION (J3010) As Ordered ONE ×2 (07:05→07:55)
[2019-07-04] MEDS ORDERED: diphenhydrAMINE INJ 50MG/ML VIAL (J1200) As Ordered ONE (07:05)
[2019-07-04] MEDS ORDERED: ISOVUE-300 61% 50ML VIAL (Q9967) As Ordered ONE (07:06)
[2019-07-04] MEDS ORDERED: LIDOCAINE 2% MDV 20 ML VIAL As Ordered ONE (07:06)
[2019-07-04] MEDS ORDERED: HEPARIN 1,000 UNITS/ML 10ML VIAL (FOR RADIOLOGY& DIALYSIS ONLY) As Ordered ONE (07:06)
[2019-07-04] MEDS ORDERED: MIDAZOLAM INJ 2 MG/2 ML VIAL (J2250) As Ordered ONE ×2 (07:06→07:55)
[2019-07-04] MEDS: PRENATAL VITAMINS CHEWABLE TABLET PO SCH (09:20)
[2019-07-04] MEDS: DOCUSATE SODIUM 100 MG CAP PO SCH ×2 (09:21→20:13)
[2019-07-04] MEDS: PANTOPRAZOLE 40MG INJ (PROTONIX) (C9113) IV SCH (09:21)
[2019-07-04] MEDS: buPROPion **XL** TABLET 150MG (WELLBUTRIN XL) PO SCH (09:21)
[2019-07-04] MEDS ORDERED: RHOGAM 300 MCG (1500 IU) INJ (J2790) IM SCH (10:00)
--- NOTE | 2019-07-04 10:53 | IPNPDOC ---
Date Seen The patient was seen on 07/04/19. Progress Note Vascular Surgery dr Pena HPI: Vin Pérez is a 33-year-old female who is 1, who presented on June 30, 2019 with term labor. She needed to be taken to the operating room because of distress requiring emergency section. Following the the patient was found to be hypotensive. Her hemoglobin dropped, she was found to have retroperitoneal bleed. She has required multiple blood transfusions. Vascular Surgery was consulted re retroperitoneal bleed. The pt had lines removed from B/L groin areas this AM as per Dr Pena. Pt has noted Rt forearm swelling this AM as well. Denies any Headache, Chest Pain, Shortness of breath, cough, palpitations. PE: GEN: 33yoF, appears stated age. No acute distress. Alert and oriented x 3. HEENT: Normocephalic, atraumatic. Conjunctiva without injection. Moist mucous membranes. CHEST: Regular rate and rhythm, +S1, +S2 LUNGS: Clear to auscultation bilaterally. No wheezes, rales, or rhonchi. ABD: Round, soft, non-tender, non-distended. +Bowel sounds. EXT: Pulses 2+ bilaterally dorsalis pedis and radial. No lower extremity edema appreciated. SKIN: [place], dry, warm. Capillary refill <2sec. No rashes. NEURO: Alert and oriented x 3. Cranial nerves III-XII are intact. No focal deficits appreciated. A&P: 1. Retroperitoneal hematoma. S/P angiogram 07/01/[address] with coiling as per Dr Pena. S/P 20 u PRBC. SBP 118-152. Hgb 8.9 this AM. S/P sheath and catheters removed from B/L groin areas this AM, BR x 6 hrs. Continue to Monitor. 2. RUE swelling. US pending r/o DVT. VS, I&O, 24H, Fishbone Vital Signs/I&O Vital Signs Date Time Temp Pulse Resp B/P (MAP) Pulse Ox O2 Delivery O2 Flow Rate FiO2 07/04/19 09:28 99.0 84 16 123/63 (86) 92 2.0 07/02/19 12:36 40 07/02/19 12:24 Ventilator I&O- Last 24 Hours up to 6 AM 07/04/19 06:00 Intake Total 2025 ml Output Total 5150 ml Balance -3125 ml Laboratory Data 24H LABS Laboratory Tests 2 07/04/19 04:30: Nucleated Red Blood Cells % (auto) 0.1H, Immature Platelet Fraction 4.0, Anion Gap 3L, Glomerular Filtration Rate > 60.0, Blood Urea Nitrogen 16, Creatinine 1.04, Sodium Level 144, Potassium Level 3.4L, Chloride Level 110H, Carbon Dioxide Level 31, Calcium Level 7.0L, C-Reactive Protein, Quantitative 15.40H CBC/BMP Laboratory Tests 07/03/19 17:33 07/04/19 04:30 Red Blood Count 3.06 L, Mean Corpuscular Volume 85.0, Mean Corpuscular Hemoglo bin 29.1, Mean Corpuscular Hemoglobin Concent 34.2, Red Cell Distribution Width 15.1 H, Calcium Level 7.0 L Janeth Hidalgo Jul 04, 2019 10:53
--- NOTE | 2019-07-04 11:35 | REP ---
PORTABLE CHEST, ONE VIEW: HISTORY: Leukocytosis. COMPARISON: 07/02/2019 Patchy density is present in the right lower lobe consistent with infiltrate. The left lung is clear. The heart is normal in size. The pulmonary vasculature is normal in appearance. A central line is present. IMPRESSION: Right lower lobe infiltrate. Electronically Signed by Kurt Ma MD 07/04/2019 12:14 P
--- NOTE | 2019-07-04 12:08 | REP ---
Right upper extremity duplex Doppler venous ultrasound. Real time compression and duplex Doppler evaluation of the right upper extremity deep venous system is performed. The right subclavian, jugular, axillary, brachial, basilic and cephalic veins are fully compressible where accessible with transducer pressure, and demonstrate no intraluminal thrombus and normal venous waveforms. There is no evidence of deep venous thrombosis. Impression: No evidence of deep venous thrombosis of the right upper extremity deep vein system. There may be a superficial venous thrombosis in the hand. Electronically Signed by Moe Ryan MD 07/04/2019 11:59 A
--- NOTE | 2019-07-04 13:04 | IPN ---
DATE: 07/04/2019 NOTE: Ms. Pérez did well overnight. This morning, she had her femoral lines removed. She has a cough. She denies chest pain or shortness of breath. She will desaturate with movement. Overall, she feels her pain is well controlled. She has a right swollen arm and swollen hand. She is anxious to have her first meal of solid food. OBJECTIVE/PHYSICAL EXAMINATION: General: Ms. Pérez is lying in bed in no acute distress. She can complete full sentences. No cough during my evaluation. Vital Signs: Temperature 99.0 with a T-max of 99.4. Pulse 84. Respiratory rate 16. Blood pressure 123/63 with a MAP of 86. SPO2 92-95% on FIO2 of 2 liters. HEENT: Anicteric, PERRL. Nares: Patent bilaterally, moist mucosa. Oropharynx clear, no lesions, moist mucosa. Lymph: Without cervical or supraclavicular lymphadenopathy. Lungs: Symmetric excursion, good air entry. No wheeze, rhonchi or significant crackle. Normal I:E. No accessory muscle usage or retractions. Cardiovascular: Regular rate and rhythm with a normal S1 and S2. No murmur, rub or gallop appreciated. Abdomen: Positive bowel sounds. Mild distention. Mild tenderness. Decreased firmness on the right. incision clean. Dressing clean and dry. Extremities: She remains with generalized edema that is improving. Extremities are warm and well perfused. Palpable pedal pulses bilaterally. No cyanosis or clubbing. Her right upper extremity is swollen and tense. She still has palpable radial pulses on the right. The arms is not discolored. LABORATORY DATA: CBC shows a hemoglobin 8.9, hematocrit 26, platelet count 80,000, white blood cell count 24,900. Chemistries show sodium 144, potassium 3.4, chloride 110, bicarbonate 31, anion gap 3, BUN 16, creatinine 1.0, glucose 121, calcium 7.0, CRP 15.4 down from 16.6. I reviewed her chest x-ray as well as the report from earlier today. That x-ray showed normal-appearing cardiac silhouette and pulmonary vascular shadows. Normal-appearing mediastinal and hilar regions. There is a new right lower lobe infiltrate. Yesterday's ins and outs were 1875 in and 5245 out making her negative 3370. All of the output was urine. Thus far today, 200 in and 1570 out making her negative 1370, again all of the output is urine. She has not had a bowel movement. IMPRESSION: 1. Acute hypoxic respiratory failure. I suspect that her hypoxia is predominantly secondary to fluid overload. She has a new right lower lobe infiltrate, but I would not anticipate that the air space involved with this infiltrate is sufficient to cause hypoxemia. 2. Right lower lobe infiltrate. This could be a hospital acquired process. She had risk factors for aspiration given the events involved in her resuscitation on Wednesday. 3. Leukocytosis. Differential for this is broad including in part related to her right lower lobe infiltrate, secondary to the large hematoma itself, secondary to infection within the large hematoma, versus other. 4. Right upper extremity edema. It does not appear to be positional. Differential would include deep vein thrombosis (DVT). 5. Acute kidney failure, resolving. 6. Postoperative day #3, status post emergent section. 7. Depression/anxiety as outpatient, doing well on Wellbutrin. 8. DVT and stress ulcer prophylaxis in place. RECOMMENDATIONS: 1. Ms. Pérez is on Zosyn which should cover most pathogens. We will send a methicillin-resistant Staphylococcus aureus (MRSA) swab. If it is positive, we would consider expanding her coverage to include that pathogen, particularly given that her pneumonic infection was obtained while in the hospital. 2. We will most likely add vancomycin if her MRSA is positive. 3. We will obtain a stat right upper lobe ultrasound. If she does have clot, will need to discuss with Dr. Pena with options being starting anticoagulation without a bolus versus consideration of a more aggressive process such as embolectomy. Hopefully, there will not be DVT present. 4. Will continue to increase her diet. 5. Will need to start ambulation as soon as she is able to have more activity following the removal of her femoral lines. 6. Will add MPO boots to prevent foot drop. JONE
[2019-07-04 16:21] LABS: HEMATOCRIT 26.3 % (36.0-47.0); HEMOGLOBIN 8.9 g/dl (12.0-15.5); MEAN CORPUSCULAR HEMOGLOBIN 30.1 pg (27.0-33.0); MEAN CORPUSCULAR HGB CONC 33.8 g/dl (32.0-36.5); MEAN CORPUSCULAR VOLUME 88.9 fl (80.0-96.0); RED BLOOD COUNT 2.96 10^6/uL (4.00-5.40); WHITE BLOOD COUNT 23.9 10^3/uL (4.0-10.0)
[2019-07-04 16:26] LABS: PLATELET COUNT, AUTOMATED 87 10^3/uL (150-450)
[2019-07-04] MEDS ORDERED: CALCIUM GLUCONATE 1,000 MG in D5W MINI-BAG PLUS 100 ML IV ONE (18:45)
[2019-07-04] MEDS ORDERED: POTASSIUM CHLORIDE 10 MEQ SR TABLET PO ONE (18:45)
--- NOTE | 2019-07-04 20:10 | IPN ---
DATE: 07/04/2019 SUBJECTIVE: The patient was seen and examined at the bedside today in the evening. She is afebrile, hemodynamically stable. I see that most of her lines have been removed by vascular surgery now. She is responding very well to the IV diuretics. She made more than 5 liters of urine yesterday. Renal function is stable. Creatinine is actually down to 1.04 today. The patient is awake and alert. She reports that she started tolerating the regular diet now. She was given 2 units of PRBC transfusion yesterday. Hemoglobin is stable. OBJECTIVE: VITAL SIGNS: Temperature is 98.9 degrees Fahrenheit, blood pressure 127/68, pulse is 85, respiratory of 20, saturating 95% on 3 liters via nasal cannula. INTAKE AND OUTPUT: Urine output recorded is 5.2 liters yesterday, 3.9 liters so far today since overnight. Weight in the bed scale is 97.8 kg. PHYSICAL EXAMINATION: GENERAL: The patient is awake, alert, oriented times three, laying in bed in no apparent distress. HEAD AND NECK EXAM: Extraocular muscles intact. Pupils equally round and reactive to light. Mucous membranes are moist. Neck is supple. She has a right IJ triple lumen catheter. CARDIOVASCULAR: S1, S2, regular rate, 3+ edema of the bilateral lower extremities. RESPIRATORY: Chest is clear to auscultation bilaterally. Bilateral equal air entry. No rales or rhonchi. ABDOMEN: Soft. Suprapubic section incision site is covered with dressing, mild amount of tenderness to deep palpation in the right lower quadrant and left lower quadrant. GENITOURINARY: She has an indwelling Lopez catheter. MUSCULOSKELETAL: She has 3+ edema of the extremities, otherwise normal range of movement. 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 Power is 5/5 in bilateral upper extremities. LABORATORY REVIEW: CBC showed WBC 23.9, hemoglobin 8.9, platelets are 87. BMP showed sodium 144, potassium 3.4, chloride 110, bicarbonate 31, BUN 16, creatinine is 1.04, it was 1.2 yesterday, and calcium is 7, C-reactive protein is 15.4. IMAGING STUDIES: Chest x-ray was done today which showed right lower lobe infiltrate. CURRENT INPATIENT MEDICATIONS: The patient's medications were all reviewed by me. She continues to be on Zosyn 3.375 grams IV every 6 hours which was started yesterday. She was on Lasix 60 mg IV every 8 hours and I have changed it to 60 mg IV every 12 hours. She was given a dose of potassium chloride 40 mEq by mouth times one dose. IV potassium has been. ASSESSMENT/PLAN: 1. Acute renal failure. It is resolved now. Creatinine is down to 1.04. The patient is responding well to the diuretics. Left groin hemodialysis catheter has been removed now. 2. Generalized anasarca. The patient is getting IV Lasix 60 mg IV every 8 hours. She made more than 5 liters of urine yesterday. I have changed the dose to 60 mg IV every 12 hours with and a net negative fluid balance target of -2.5 liters a day. 3. Hypokalemia. It is secondary to aggressive diuresis. She was given potassium chloride 40 mEq by mouth in the morning. I have given her another dose of 40 mEq by mouth in the evening today. 4. Hypocalcemia. It is secondary to diuresis and blood transfusions. The patient will be given a dose of calcium gluconate 1 gram IV today. 5. Status post hemorrhagic shock and intraabdominal bleed. The patient's hemoglobin was low yesterday. She was given 2 units of PRBC transfusion. Hemoglobin is staying stable now. 6. Possible right lower lobe pneumonia. The patient is currently on Zosyn, dose is adequate according to renal function. If gram-positive coverage is needed, patient can be given vancomycin. Total critical care time spent in the management of this patient today evening in the ICU was 45 minutes.
[2019-07-05] VITALS (13 sets, daily range): BP systolic 120–162; BP diastolic 60–82
[2019-07-05] MEDS: PERCOCET 5MG/325MG TAB PO PRN ×4 (00:15→22:47)
[2019-07-05] MEDS: FUROSEMIDE 100 MG/10 ML VIAL (J1940) IV SCH ×2 (04:47→16:08)
[2019-07-05] MEDS: PIPERACILLIN/TAZOBACTAM SOD 3.375 GM in D5W MINI-BAG PLUS 50 ML IV SCH ×4 (04:47→22:45)
[2019-07-05 06:08] LABS: HEMATOCRIT 27.6 % (36.0-47.0); HEMOGLOBIN 9.3 g/dl (12.0-15.5); MEAN CORPUSCULAR HEMOGLOBIN 30.2 pg (27.0-33.0); MEAN CORPUSCULAR HGB CONC 33.7 g/dl (32.0-36.5); MEAN CORPUSCULAR VOLUME 89.6 fl (80.0-96.0); PLATELET COUNT, AUTOMATED 108 10^3/uL (150-450); RED BLOOD COUNT 3.08 10^6/uL (4.00-5.40); WHITE BLOOD COUNT 20.4 10^3/uL (4.0-10.0)
[2019-07-05 06:29] LABS: ALBUMIN 1.9 GM/DL (3.2-5.2); ALT/SGPT 94 U/L (12-78); BILIRUBIN,TOTAL 0.7 MG/DL (0.2-1.0); BLOOD UREA NITROGEN 23 MG/DL (7-18); CALCIUM LEVEL 7.2 MG/DL (8.5-10.1); CARBON DIOXIDE LEVEL 31 MEQ/L (21-32); CHLORIDE LEVEL 107 MEQ/L (98-107); CREATININE FOR GFR 0.98 MG/DL (0.55-1.30); GLOMERULAR FILTRATION RATE > 60.0 (>60); GLUCOSE, FASTING 89 MG/DL (70-100); POTASSIUM SERUM 3.2 MEQ/L (3.5-5.1); SODIUM LEVEL 144 MEQ/L (136-145); TOTAL PROTEIN 4.9 GM/DL (6.4-8.2)
[2019-07-05] MEDS ORDERED: KCL 20MEQ IN 100ML SWI (KRUN) 20 MEQ in APPROPRIATE DILUENT 1 EA IV ONE ×6 (07:00→14:00)
[2019-07-05] MEDS: PRENATAL VITAMINS CHEWABLE TABLET PO SCH (08:02)
[2019-07-05] MEDS: PANTOPRAZOLE 40MG INJ (PROTONIX) (C9113) IV SCH (08:03)
[2019-07-05] MEDS: DOCUSATE SODIUM 100 MG CAP PO SCH ×2 (08:03→19:39)
[2019-07-05] MEDS: buPROPion **XL** TABLET 150MG (WELLBUTRIN XL) PO SCH (08:22)
[2019-07-05] MEDS: MORPHINE 4 MG/ML 1ML VIAL/SYRINGE (J2270) IV PRN (10:38)
[2019-07-05] MEDS ORDERED: POTASSIUM CHLORIDE 10 MEQ SR TABLET PO ONE (11:00)
[2019-07-05 13:27] LABS: CALCIUM LEVEL 7.8 MG/DL (8.5-10.1); CREATININE FOR GFR 1.11 MG/DL (0.55-1.30); GLOMERULAR FILTRATION RATE 59.5 (>60); POTASSIUM SERUM 3.5 MEQ/L (3.5-5.1)
[2019-07-06] VITALS (7 sets, daily range): BP systolic 125–154; BP diastolic 68–91
[2019-07-06] MEDS: FUROSEMIDE 100 MG/10 ML VIAL (J1940) IV SCH (04:15)
[2019-07-06] MEDS: PIPERACILLIN/TAZOBACTAM SOD 3.375 GM in D5W MINI-BAG PLUS 50 ML IV SCH ×4 (04:15→22:18)
[2019-07-06] MEDS: PERCOCET 5MG/325MG TAB PO PRN ×5 (04:29→22:20)
[2019-07-06 06:20] LABS: HEMATOCRIT 29.9 % (36.0-47.0); HEMOGLOBIN 9.9 g/dl (12.0-15.5); MEAN CORPUSCULAR HEMOGLOBIN 29.7 pg (27.0-33.0); MEAN CORPUSCULAR HGB CONC 33.1 g/dl (32.0-36.5); MEAN CORPUSCULAR VOLUME 89.8 fl (80.0-96.0); PLATELET COUNT, AUTOMATED 144 10^3/uL (150-450); RED BLOOD COUNT 3.33 10^6/uL (4.00-5.40); WHITE BLOOD COUNT 13.9 10^3/uL (4.0-10.0)
[2019-07-06 06:47] LABS: BLOOD UREA NITROGEN 25 MG/DL (7-18); CALCIUM LEVEL 7.6 MG/DL (8.5-10.1); CARBON DIOXIDE LEVEL 31 MEQ/L (21-32); CHLORIDE LEVEL 105 MEQ/L (98-107); CREATININE FOR GFR 0.92 MG/DL (0.55-1.30); GLOMERULAR FILTRATION RATE > 60.0 (>60); GLUCOSE, FASTING 69 MG/DL (70-100); POTASSIUM SERUM 3.1 MEQ/L (3.5-5.1); SODIUM LEVEL 143 MEQ/L (136-145)
[2019-07-06] MEDS ORDERED: POTASSIUM CHLORIDE 10 MEQ SR TABLET PO ONE ×2 (07:15→18:00)
[2019-07-06] MEDS ORDERED: KCL 20MEQ IN 100ML SWI (KRUN) 20 MEQ in APPROPRIATE DILUENT 1 EA IV ONE ×8 (07:15→16:15)
[2019-07-06] MEDS: PRENATAL VITAMINS CHEWABLE TABLET PO SCH (08:20)
[2019-07-06] MEDS: PANTOPRAZOLE 40MG INJ (PROTONIX) (C9113) IV SCH (08:20)
[2019-07-06] MEDS: buPROPion **XL** TABLET 150MG (WELLBUTRIN XL) PO SCH (08:20)
[2019-07-06] MEDS: DOCUSATE SODIUM 100 MG CAP PO SCH ×2 (08:21→19:30)
--- NOTE | 2019-07-06 08:28 | IPNPDOC ---
Date Seen The patient was seen on 07/05/19. Progress Note Vascular Surgery Dr Pena HPI: Vin éPrez is a 33-year-old female who is 1, who presented on June 30, 2019 with term labor. She needed to be taken to the operating room because of distress requiring emergency section. Following the the patient was found to be hypotensive. Her hemoglobin dropped, she was found to have retroperitoneal bleed. She has required multiple blood transfusions. Vascular Surgery was consulted re retroperitoneal bleed. Denies any Headache, Chest Pain, Shortness of breath, cough, palpitations. PE: GEN: 33yoF, appears stated age. No acute distress. Alert and oriented x 3. HEENT: Normocephalic, atraumatic. Moist mucous membranes. CHEST: Regular rate and rhythm, +S1, +S2 LUNGS: Clear to auscultation bilaterally. No wheezes, rales, or rhonchi. ABD: Round, soft, non-tender, non-distended. +Bowel sounds. EXT: Pulses 2+ bilaterally dorsalis pedis and radial. No lower extremity edema appreciated. SKIN: [address], dry, warm. Capillary refill <2sec. No rashes. Decreased swelling Rt forearm/hand. No erythema, TTP. NEURO: Alert and oriented x 3. Cranial nerves III-XII are intact. No focal deficits appreciated. A&P: 1. Retroperitoneal hematoma. S/P angiogram 07/01/19 with coiling as per Dr Pena. S/P 20 u PRBC. BP stable Hgb 9.3 this AM. 2. RUE swelling. US RUE neg for DVT. Re consult vascular surgery as needed. VS, I&O, 24H, Fishbone Vital Signs/I&O Vital Signs Date Time Temp Pulse Resp B/P (MAP) Pulse Ox O2 Delivery O2 Flow Rate FiO2 07/06/19 04:59 15 07/06/19 04:29 86 139/75 94 07/06/19 04:00 97.2 07/05/19 12:00 07/02/19 12:36 40 07/02/19 12:24 Ventilator I&O- Last 24 Hours up to 6 AM 07/06/19 05:59 Intake Total 2516 ml Output Total 4850 ml Balance -2334 ml Laboratory Data 24H LABS Laboratory Tests 2 07/05/19 12:43: Anion Gap 9, Glomerular Filtration Rate 59.5L, Blood Urea Nitrogen 24H, Creatinine 1.11, Sodium Level 142, Potassium Level 3.5, Chloride Level 106, Carbon Dioxide Level 27, Calcium Level 7.8L 07/06/19 05:57: Anion Gap 7L, Glomerular Filtration Rate > 60.0, Blood Urea Nitrogen 25H, Creatinine 0.92, Sodium Level 143, Potassium Level 3.1L, Chloride Level 105, Carbon Dioxide Level 31, Calcium Level 7.6L, Nucleated Red Blood Cells % (auto) 0.3H CBC/BMP Laboratory Tests 07/05/19 12:43 Calcium Level 7.8 L 07/06/19 05:57 Calcium Level 7.6 L, Red Blood Count 3.33 L, Mean Corpuscular Volume 89.8, Mean Corpuscular Hemoglobin 29.7, Mean Corpuscular Hemoglobin Concent 33.1, Red Cell Distribution Width 14.6 H Microbiology Microbiology 07/06/19 Gram Stain, Received Pending 07/06/19 Sputum Culture, Received Pending Janeth Hidalgo Jul 06, 2019 08:28
[2019-07-06] MEDS: FUROSEMIDE 40 MG/4 ML VIAL (J1940) IV SCH ×2 (13:32→22:18)
[2019-07-06 15:24] LABS: BLOOD UREA NITROGEN 27 MG/DL (7-18); CALCIUM LEVEL 7.7 MG/DL (8.5-10.1); CARBON DIOXIDE LEVEL 31 MEQ/L (21-32); CHLORIDE LEVEL 106 MEQ/L (98-107); CREATININE FOR GFR 1.04 MG/DL (0.55-1.30); GLOMERULAR FILTRATION RATE > 60.0 (>60); GLUCOSE, FASTING 94 MG/DL (70-100); SODIUM LEVEL 140 MEQ/L (136-145)
--- NOTE | 2019-07-06 17:27 | IPN ---
DATE: 07/05/2019 SUBJECTIVE: The patient was seen and examined at the bedside today morning in the ICU. The patient is clinically slowly improving. She still reports feeling very weak and fatigued. She cannot get out of bed to chair. Her edema is improving. She is making more than 5 liters of urine a day. Renal function is stable. OBJECTIVE: VITAL SIGNS: Temperature is 98 degrees Fahrenheit, blood pressure 142/75, pulse is 98, respiratory rate of 18, saturating 94% on room air. INTAKE AND OUTPUT: Urine output recorded is 5 liters yesterday, 1300 mL by the time I saw her in the morning. Weight in the bed scale is 98.7 kg. PHYSICAL EXAMINATION: GENERAL: The patient is awake, alert, oriented times three, laying in bed. No apparent distress. HEAD AND NECK EXAM: Extraocular muscles intact. Pupils equally round and reactive to light. Mucous membranes are moist. Neck is supple. Right IJ triple lumen catheter was noted. CARDIOVASCULAR: S1, S2, regular rate. 3+ edema of the bilateral lower extremities. RESPIRATORY: Chest is clear to auscultation bilaterally. Bilateral equal air entry. No rales or rhonchi. ABDOMEN: Soft, mildly tender to deep palpation in the flanks. Suprapubic incision site is covered with dressing. GENITOURINARY: The patient has an indwelling Lopez catheter. MUSCULOSKELETAL: The patient has 3+ edema of the bilateral lower extremities. OR MANAGER: No focal deficit, power is 5/5 in bilateral upper extremities. LABORATORY REVIEW: CBC showed WBC of 20.4, hemoglobin is 9.3, platelets are 108. BMP showed sodium 144, potassium 3.2, chloride 107, bicarbonate 31, BUN 23, creatinine 0.98, calcium 7.2, albumin is 1.9. CURRENT INPATIENT MEDICATIONS: The patient's medications were all reviewed by me. She has been started on IV KCl by myself. She continues to be on IV Zosyn. She has been restarted on Wellbutrin 300 mg by mouth daily. She continues to be on Lasix 60 mg IV every 12 hours. No other change in the medications today as compared with yesterday. ASSESSMENT/PLAN: 1. Generalized anasarca, The patient has recently recovered from hemorrhagic shock and acute renal failure. She is tolerating Lasix 60 mg IV every 12 hours. Continue current dose. Net negative fluid balance goal of about 2.5 liters a day. Edema is slowly improving. 2. Hypokalemia. The patient is going to get potassium chloride 20 mEq IV times three doses, each dose 3-hours apart. She was also given oral potassium. Repeat potassium done in the afternoon was 3.5. 3. Acute blood loss anemia. The patient's last transfusion was on 07/03/2019. Hemoglobin is stable. No need of blood transfusion at this time. 4. Generalized weakness. The patient is starting the physical therapy. She started taking oral diet. She just recovered from shock and acute renal failure. She has protein calorie malnutrition which is slowly improving. 5. Leukocytosis. The patient's white cell count is slowly improving. She continues to be on IV Zosyn.
--- NOTE | 2019-07-06 18:52 | REP ---
CHEST, TWO VIEWS: Two views of the chest are performed. Comparison . Previously noted right basilar infiltrate appears improved with mild residual. Left lung is unchanged in appearance. Heart and mediastinum are unremarkable and unchanged. A right central venous catheter is again noted. IMPRESSION: Improved right basilar infiltrate with mild residual. Electronically Signed by Moe Ryan MD 07/07/2019 09:55 A
[2019-07-06] MEDS ORDERED: ANALGESIC BALM CRM 120 GM TOP PRN (22:30)
[2019-07-07] VITALS: BP 137/75
[2019-07-07] MEDS: PERCOCET 5MG/325MG TAB PO PRN ×6 (02:59→23:46)
[2019-07-07 04:00] VITALS: BP 143/81
[2019-07-07] MEDS: FUROSEMIDE 40 MG/4 ML VIAL (J1940) IV SCH (05:38)
[2019-07-07] MEDS: PIPERACILLIN/TAZOBACTAM SOD 3.375 GM in D5W MINI-BAG PLUS 50 ML IV SCH ×2 (05:38→11:14)
[2019-07-07 06:00] VITALS: BP 145/77
[2019-07-07] MEDS ORDERED: LevoFLOXacin 750 MG TABLET PO SCH (06:00)
[2019-07-07 06:02] LABS: HEMOGLOBIN 9.9 g/dl (12.0-15.5); MEAN CORPUSCULAR HEMOGLOBIN 29.4 pg (27.0-33.0); PLATELET COUNT, AUTOMATED 173 10^3/uL (150-450); RED BLOOD COUNT 3.37 10^6/uL (4.00-5.40); WHITE BLOOD COUNT 16.2 10^3/uL (4.0-10.0)
[2019-07-07 06:35] LABS: BLOOD UREA NITROGEN 23 MG/DL (7-18); CALCIUM LEVEL 7.6 MG/DL (8.5-10.1); CARBON DIOXIDE LEVEL 29 MEQ/L (21-32); CHLORIDE LEVEL 106 MEQ/L (98-107); CREATININE FOR GFR 0.89 MG/DL (0.55-1.30); GLOMERULAR FILTRATION RATE > 60.0 (>60); GLUCOSE, FASTING 74 MG/DL (70-100); POTASSIUM SERUM 3.8 MEQ/L (3.5-5.1); SODIUM LEVEL 140 MEQ/L (136-145)
[2019-07-07 08:00] VITALS: BP 142/86
[2019-07-07] MEDS: PRENATAL VITAMINS CHEWABLE TABLET PO SCH (09:35)
[2019-07-07] MEDS: buPROPion **XL** TABLET 150MG (WELLBUTRIN XL) PO SCH (09:35)
[2019-07-07] MEDS: DOCUSATE SODIUM 100 MG CAP PO SCH ×2 (09:35→20:21)
[2019-07-07] MEDS: PANTOPRAZOLE 40MG TAB (PROTONIX) PO SCH (09:35)
[2019-07-07] MEDS ORDERED: POTASSIUM CHLORIDE 10 MEQ SR TABLET PO ONE (10:00)
[2019-07-07] MEDS: LevoFLOXacin 750 MG TABLET PO SCH (17:58)
[2019-07-07] MEDS: TORSEMIDE 20 MG TAB PO SCH (17:58)
[2019-07-07 18:30] VITALS: BP 136/76
--- NOTE | 2019-07-07 20:09 | IPN ---
DATE: 07/06/2019 SUBJECTIVE: The patient was seen and examined at the bedside today morning in the intensive care unit (ICU). The patient is awake and alert. She is clinically getting better. Her edema is improving. Renal function is stable. The patient was holding her baby in her arms today when I saw her. Her family members were also present at the bedside. She continues to be on intravenous (IV) diuretics for generalized anasarca. OBJECTIVE: Vital signs: Temperature is 98.5 degrees Fahrenheit, blood pressure 136/91, pulse is 106, respiratory rate of 20, saturating 98% on room air. Intake and output: Urine output recorded as 4.4 liters yesterday, 3.8 liters so far today since overnight. Weight on the bed scale is 98.1 kg. PHYSICAL EXAMINATION: General: The patient is awake, alert, oriented times three, laying in bed. No apparent distress. Head and neck exam: Extraocular muscles intact. Pupils equally round and reactive to light. Mucous membranes are moist. Neck is supple. She has a right internal jugular (IJ) triple lumen catheter. Cardiovascular: S1, S2, regular rate, 2+ edema of the bilateral lower extremities. Respiratory: Chest is clear to auscultation bilaterally. Bilateral equal air entry. No rales or rhonchi. Abdomen: Soft. Positive bowel sounds. Mildly tender to deep palpation suprapubic region, dressing was noted. Genitourinary: She has an indwelling Lopez catheter. Musculoskeletal: 2+ edema of the bilateral lower extremities. Otherwise no clubbing or cyanosis. Central nervous system (ROUND BONER): No focal deficit. Power is 5/5 in bilateral upper extremities. LABORATORY REVIEW: CBC showed a WBC of 13.9, hemoglobin 9.9, platelets of 144. BMP showed sodium 140, potassium 4, chloride 106, bicarbonate 31, BUN 27, creatinine is 1.04, calcium is 7.7. Microbiology: He got the sputum culture done today along with Gram stain which showed many WBCs, moderate gram-positive cocci in clusters and chains. IMAGING: A chest x-ray was done today which showed improved right basilar infiltrate with mild residue. CURRENT INPATIENT MEDICATIONS.: The patient's medications were all reviewed by me. She has been started on IV KCl because of hypokalemia. She continues to be on IV Zosyn. I would change the IV Lasix dose to 40 mg IV every 8 hours. ASSESSMENT/PLAN: 1. Generalized anasarca. The patient continues to be on IV Lasix injections. Edema is improving slowly. Continue IV Lasix; dose has been changed to 40 mg IV every 8 hours. 2. Hypokalemia. The patient was given oral and IV potassium. If needed, the patient will be started on spironolactone tomorrow morning. 3. Leukocytosis. White cell count is slowly improving. The patient continues to be on IV Zosyn; today is day #4. 4. Acute blood loss anemia. Hemoglobin is stable at 9.9. No signs of active bleeding at this time. 5. Disposition: It is okay to discharge the patient down to progressive care unit (PCU) now. Her Lopez catheter can be removed. However, continue to monitor 24-hour intake and output.
[2019-07-08] MEDS: PERCOCET 5MG/325MG TAB PO PRN ×3 (05:02→20:13)
[2019-07-08 05:48] VITALS: BP 127/76
[2019-07-08] MEDS: DOCUSATE SODIUM 100 MG CAP PO SCH ×2 (08:34→20:11)
[2019-07-08] MEDS: PRENATAL VITAMINS CHEWABLE TABLET PO SCH (08:35)
[2019-07-08] MEDS: buPROPion **XL** TABLET 150MG (WELLBUTRIN XL) PO SCH (08:35)
[2019-07-08] MEDS: PANTOPRAZOLE 40MG TAB (PROTONIX) PO SCH (08:35)
[2019-07-08] MEDS: TORSEMIDE 20 MG TAB PO SCH (08:35)
[2019-07-08 09:59] LABS: ALBUMIN 2.6 GM/DL (3.2-5.2); BLOOD UREA NITROGEN 22 MG/DL (7-18); CALCIUM LEVEL 8.5 MG/DL (8.5-10.1); CARBON DIOXIDE LEVEL 25 MEQ/L (21-32); CHLORIDE LEVEL 105 MEQ/L (98-107); CREATININE FOR GFR 1.03 MG/DL (0.55-1.30); GLOMERULAR FILTRATION RATE > 60.0 (>60); GLUCOSE, FASTING 100 MG/DL (70-100); PHOSPHORUS LEVEL 3.4 MG/DL (2.5-4.9); SODIUM LEVEL 139 MEQ/L (136-145)
[2019-07-08] MEDS ORDERED: ACETAMINOPHEN 500 MG TAB PO PRN (10:30)
--- NOTE | 2019-07-08 13:16 | IPN ---
DATE OF SERVICE: 07/07/2019 SUBJECTIVE: Patient was seen and examined at the bedside today morning. Patient is gradually getting better every day. She was sitting up in the bed. She was holding her baby in the arms when I saw her. Renal function is stable. Anasarca is improving. She continues to be on intravenous (IV) diuretics. Hemoglobin level is stable. OBJECTIVE: Vital signs: Temperature is 98.2 degrees Fahrenheit, blood pressure 136/76, pulse is 111, respiratory rate of 20, saturating 96% on room air. Intake and output: Urine output recorded is 4.5 liters yesterday, 1500 mL so far today since overnight. Weight in the bed scale is 94.3 kg. PHYSICAL EXAM: General: is awake, alert, oriented times three, laying in bed, in no apparent distress. Head and neck exam: Extraocular muscles intact. Pupils equally round and reactive to light. Mucous membranes are moist. Neck is supple. Right internal jugular (IJ) triple lumen catheter. Cardiovascular: S1, S2. 1+ edema of the bilateral lower extremities. Respiratory: Chest is clear to auscultation bilaterally. Bilateral equal air entry. No rales or rhonchi. Abdomen is soft. Positive bowel sounds. Mildly tender to deep palpation in the suprapubic region. Genitourinary: Lopez catheter has been removed. Musculoskeletal: 1+ edema of the bilateral lower extremities. Otherwise, no clubbing or cyanosis. Central nervous system (HEAD KILN OPERATOR): No focal deficit. Power is 5/5 in bilateral upper extremities. LAB REVIEW: CBC showed WBC 16.2, hemoglobin 9.9, platelets of 173. BMP showed sodium 140, potassium 3.8, chloride 106, bicarbonate 29, BUN 23, creatinine is 0.89, calcium is 7.6. IMAGING: A chest x-ray was done, which showed improved right basilar infiltrate with mild residue. CURRENT INPATIENT MEDICATIONS: Patient's medications were all reviewed by me. IV Zosyn has been stopped now. I have stopped the IV Lasix. The patient is currently on Levaquin 750 mg by mouth daily. Patient is on torsemide 40 mg by mouth twice a day now. ASSESSMENT AND PLAN: 1. Generalized anasarca. Patient's volume status is improving. IV diuretics have been stopped. She has been switched to oral torsemide 40 mg by mouth twice a day. 2. Hypokalemia. It was secondary to aggressive diuresis. Potassium level is 3.8 today, which is optimal. She was given another dose of potassium chloride 40 mEq by mouth today morning. 3. Leukocytosis. Chest x-ray shows improvement in the infiltrates. IV antibiotic has been stopped. She is currently on Zosyn 750 mg by mouth daily. 4. Acute blood loss anemia. Hemoglobin level has been stable at 9.9.
[2019-07-08 17:52] VITALS: BP 144/77
[2019-07-08] MEDS: LevoFLOXacin 750 MG TABLET PO SCH (18:06)
[2019-07-09] MEDS: PERCOCET 5MG/325MG TAB PO PRN ×2 (00:52→09:16)
[2019-07-09 06:27] VITALS: BP 132/70
[2019-07-09 07:03] LABS: HEMATOCRIT 35.3 % (36.0-47.0); HEMOGLOBIN 11.4 g/dl (12.0-15.5); MEAN CORPUSCULAR HEMOGLOBIN 29.4 pg (27.0-33.0); MEAN CORPUSCULAR HGB CONC 32.3 g/dl (32.0-36.5); PLATELET COUNT, AUTOMATED 340 10^3/uL (150-450); RED BLOOD COUNT 3.88 10^6/uL (4.00-5.40); WHITE BLOOD COUNT 15.5 10^3/uL (4.0-10.0)
[2019-07-09 07:20] LABS: ALBUMIN 2.2 GM/DL (3.2-5.2); BLOOD UREA NITROGEN 18 MG/DL (7-18); CALCIUM LEVEL 8.4 MG/DL (8.5-10.1); CARBON DIOXIDE LEVEL 27 MEQ/L (21-32); CHLORIDE LEVEL 106 MEQ/L (98-107); CREATININE FOR GFR 0.89 MG/DL (0.55-1.30); GLOMERULAR FILTRATION RATE > 60.0 (>60); GLUCOSE, FASTING 82 MG/DL (70-100); PHOSPHORUS LEVEL 3.4 MG/DL (2.5-4.9); POTASSIUM SERUM 3.6 MEQ/L (3.5-5.1); SODIUM LEVEL 140 MEQ/L (136-145)
[2019-07-09] MEDS: PRENATAL VITAMINS CHEWABLE TABLET PO SCH (09:15)
[2019-07-09] MEDS: DOCUSATE SODIUM 100 MG CAP PO SCH (09:15)
[2019-07-09] MEDS: buPROPion **XL** TABLET 150MG (WELLBUTRIN XL) PO SCH (09:16)
[2019-07-09] MEDS: PANTOPRAZOLE 40MG TAB (PROTONIX) PO SCH (09:16)
--- NOTE | 2019-07-09 10:21 | IPN ---
DATE OF VISIT: 07/08/2019 Mrs. Pérez is seen this morning on her bedside. She is feeling well and reports ambulating without any difficulty. Her peripheral edema has improved significantly with diuretic use. She denies any nausea, vomiting, dyspnea, or chest pain. On physical exam, temperature 97.6 degrees Fahrenheit, heart rate 106 per minute and respiratory rate 18 per minute. Blood pressure 127/76 mmHg and oxygen saturation 95%. Intake and output records from yesterday showed total intake 1575 and output 4580. In last 5 days, she has at least 12 liters of negative fluid balance. Her head is atraumatic. Neck is supple and without jugular venous distention (JVD) or thyroid enlargement. Heart sounds are tachycardiac and lungs sound clear to auscultation. Abdomen soft, nontender, and bowel sounds are present. Extremities without any pitting edema. Skin has no rash or ulcers. Neurologically, she is awake, alert and oriented times three. Today's labs show WBC count 16.2, hemoglobin 9.9, and hematocrit 30. Platelets 173. Sodium 139, potassium 4.0, CO2 25, BUN 22, and creatinine 1.03. Glucose 100 and calcium 8.5. Albumin is 2.6. PROBLEMS: 1. Acute renal failure related to hemorrhagic shock and kidney function has recovered and improved. 2. Chronic kidney disease with atrophic right kidney. On recent imaging she was noticed to have atrophic right kidney and probably has underlying mild chronic kidney disease. Her creatinine of 0.8-1.0 is probably her baseline. No urgent intervention is indicated at this point. She can be followed up as an outpatient. 3. Hypervolemia and peripheral edema. She has diuresed very well and her peripheral edema has improved significantly. I am going to stop the diuretic and we will watch her for next 24 hours. If she has decent urine output without diuretic, then we will let her go home tomorrow morning. 4. Acute blood loss anemia. Her anemia has been stable for last few days and she has not required further transfusions. DISPOSITION: I have explained to patient that I would like to observe her for 24 hours without diuretic and then consider discharging her home tomorrow if everything is good. Edited: 04/08/2019 1429 allen
[2019-07-09] MEDS ORDERED: PERCOCET PO (10:52)
--- NOTE | 2019-08-04 16:16 | REPIR ---
DATE OF PROCEDURE: 07/01/2019 ATTENDING SURGEON: Dr. Jessica Pena DEPOT AGENT: Yuki Swain PREOPERATIVE DIAGNOSIS: Retroperitoneal hematoma, hemorrhagic shock. POSTOPERATIVE DIAGNOSIS: Retroperitoneal hematoma, hemorrhagic shock. PROCEDURE: Aortogram, iliofemoral angiogram, selective right common iliac artery catheter placement with angiogram, selective right internal iliac artery catheter placement with angiogram, coil embolization of the right internal iliac artery. INDICATION: The patient is a 33-year-old female with retroperitoneal hematoma and hemorrhagic shock after undergoing a (C) section with formation of a retroperitoneal hematoma and bleeding. The patient has been resuscitated and continues to have hypotension and signs of bleeding and will undergo an angiogram with possible angioplasty stent, atherectomy and/or coil embolization. ANESTHESIA: General endotracheal. ESTIMATED BLOOD LOSS: 10 mL. IV FLUIDS: SPECIMENS: None. DRAINS: None. IMPLANTS: Coils. PROCEDURE: The patient was taken to the angiography suite, placed supine on the angiography room table, and then prepped and draped in a standard surgical fashion. The left common femoral artery was cannulated with a micropuncture wire after anesthetizing the overlying skin with 2% lidocaine mixed with 0.5% Marcaine. A micropuncture wire was advanced through the micropuncture needle, which was upsized to a micropuncture sheath. A Pretty Simpleson wire was advanced through the micropuncture sheath, which was upsized to 5-Chinese sheath. An Omni flush catheter was placed in the aorta and aortogram was performed. Catheter was advanced up and over the bifurcation of the iliac arteries after an iliofemoral angiogram was performed and placed in the right common iliac artery. An angiogram was performed showing a blush arising off of the internal iliac artery. Catheter was advanced into the internal iliac artery and the angiogram showed the blush originating for what appeared to be the iliolumbar artery. The iliolumbar artery was selectively cannulated and coils were placed within it. The internal iliac artery proximal and distal to the iliolumbar artery was embolized with coils as well. Completion angiogram showed no further blush with good placement of the coils. Catheters and wires were removed. The sheath remained in the left femoral artery and was connected to a heparinized saline bag. The patient was transferred to the intensive care unit (ICU) in critical condition.
--- NOTE | 2019-08-04 18:19 | RO ---
DATE OF PROCEDURE: 07/01/2019 PREOPERATIVE DIAGNOSIS: Status post section, retroperitoneal hematoma. POSTOPERATIVE DIAGNOSIS: Status post section, retroperitoneal hematoma. PROCEDURE: Retroperitoneal hematoma exploration, intraoperative consultation SURGEON: Dr. Matheus Pena WATER SOFTENER SERVICE SUPERVISOR: None. ANESTHESIA: General endotracheal. INDICATION: The patient is a 33-year-old female who underwent a section () with subsequent return to the operating room for bleeding and was found to have a large mass in the retroperitoneum. Intraoperative consultation and evaluation was requested. COMPLICATIONS: None. DRAINS: None. SPECIMENS: None. IMPLANTS: None. DESCRIPTION OF PROCEDURE: The patient already remained lying on the operating room table when I arrived and hemostasis had been obtained with the section incision remaining open. The abdomen was evaluated, and there were sutures noted in the broad ligament and the area of bleeding and there was good hemostasis at this point, but there was obvious hematoma in the retroperitoneum. Recommendation was to close the abdomen as there was hemostasis obtained at this time, and obtain a CT scan to evaluate for possible further bleeding and size of the retroperitoneal hematoma. The abdomen was closed after which the patient was emergently taken to the CT scan for CT evaluation. Dr. Pena was present for and directed the evaluation of the retroperitoneal hematoma and remained with the patient throughout the remainder of the case and until arriving in CT.
--- NOTE | 2019-08-04 18:29 | RO ---
DATE OF PROCEDURE: 07/01/2019 PREOPERATIVE DIAGNOSIS: Retroperitoneal hematoma, hemorrhagic shock. POSTOPERATIVE DIAGNOSIS: Retroperitoneal hematoma, hemorrhagic shock. PROCEDURE: Ultrasound-guided right femoral arterial line placement. SURGEON: Dr. Matheus Pena COMMUNITY RELATIONS LIAISON: None. ANESTHESIA: Local. ESTIMATED BLOOD LOSS: Minimal. IV FLUIDS: None. COMPLICATIONS: None. SPECIMENS: None. IMPLANTS: None. INDICATION: The patient is a 33-year-old female with hemorrhagic shock secondary to retroperitoneal hematoma formation and bleeding from a section. The patient requires arterial monitoring and will undergo placement of an arterial line. DESCRIPTION OF PROCEDURE: The patient was in the intensive care unit (ICU) and was prepped and draped in a standard surgical fashion. Ultrasound was used to evaluate the right common femoral artery, which was easily compressible, widely patent and free of thrombus. Ultrasound was used to guide cannulation of the right femoral artery and with a micropuncture needle, a micropuncture wire was advanced through the micropuncture needle which upsized to a micropuncture sheath after which an A-line was advanced over a wire. The catheter was secured using #2-0 nylon suture. Dressings were then applied. The patient tolerated the procedure well. All instrument, sponge and needle counts were correct at the end of the case. There were no complications. Dr. Pena was present for and directed the entire case.
--- NOTE | 2019-08-04 18:39 | RO ---
DATE OF PROCEDURE: 07/01/2019 PREOPERATIVE DIAGNOSIS: Retroperitoneal hematoma, hemorrhagic shock. POSTOPERATIVE DIAGNOSIS: Retroperitoneal hematoma, hemorrhagic shock. PROCEDURE: Ultrasound-guided right femoral vein cannulation and placement of a Cordis. SURGEON: Dr. Matheus Pena TOURIST INFORMATION ASSISTANT: None. ANESTHESIA: Local. ESTIMATED BLOOD LOSS: Minimal. IV FLUIDS: None. COMPLICATIONS: None. DRAINS: None. SPECIMENS: None. IMPLANTS: None. INDICATION: The patient is a 33-year-old female with hemorrhagic shock secondary to a section and formation of a retroperitoneal bleeding. The patient requires access for blood transfusion. DESCRIPTION OF PROCEDURE: The patient was prepped and draped in a standard surgical fashion. Ultrasound was used to identify the right common femoral vein which was easily compressible, widely patent, and free of thrombus. Ultrasound was used to guide cannulation. With a micropuncture needle, the micropuncture wire was advanced through the micropuncture needle, which was upsized to a micropuncture sheath. A J-wire was advanced through the micropuncture sheath, which was upsized to the Cordis. The Cordis was secured using #2-0 nylon suture. Dressings were applied after the Cordis was aspirated, noted to aspirate easily and then flushed with heparinized saline. Dressings were then applied. All instrument, sponge and needle counts were correct at the end the case. There were no complications. Dr. Pena was present for and directed the entire case. The patient remained in the intensive care unit (ICU) in critical condition.
--- NOTE | 2019-08-04 18:47 | RO ---
DATE OF PROCEDURE: 07/01/2019 PREOPERATIVE DIAGNOSIS: Nonfunctioning right internal jugular vein triple-lumen catheter. POSTOPERATIVE DIAGNOSIS: Nonfunctioning right internal jugular vein triple-lumen catheter. PROCEDURE: Right internal jugular vein nontunneled central venous catheter exchange. SURGEON: Dr. Matheus Pena SOCIAL WORK ASSISTANT: None. ANESTHESIA: Local. ESTIMATED BLOOD LOSS: Minimal. IV FLUIDS: None. COMPLICATIONS: None. DRAINS: None. SPECIMENS: None. IMPLANTS: None. INDICATION: The patient is a 33-year-old female with hemorrhagic shock, and a retroperitoneal hematoma who requires access for blood draws and infusion of medication and blood. The patient underwent a right internal jugular vein nontunneled central venous catheter which is nonfunctioning. The patient will undergo exchange and possible placement of a new catheter. DESCRIPTION OF PROCEDURE: The patient remained in the intensive care unit (ICU) in non-stable condition and was prepped and draped in a standard surgical fashion. The J-wire was advanced through the center port on the triple lumen catheter, which was removed. A new balloon catheter was placed with the length from the skin at 15 cm. The previous catheter was hubbed and placed at 21 cm. The ports were aspirated, noted to aspirate easily, and then flushed with heparinized saline. The catheter was secured to the anterior chest wall using #3-0 silk suture. Dressings were then applied. The patient tolerated the procedure well. All instrument, sponge and needle counts were correct at the case. There were no complications. Dr. Pena was present for and directed the entire case. The patient was in critical condition in the ICU at the completion of the procedure.
== END 2019-07-09 11:20 | disposition home or self-care (01) | DRG 540 ==
LOC: M LDO 21:50 → M LDI 23:21 → M LDPACU 07-01 13:09 → M ICU 07-01 13:58 → M OBS 07-07 15:00
PROVIDERS: ADMIT Advanced Practice Midwife; ATTEND Obstetrics & Gynecology
PROC: 0DJW4ZZ Inspection of Peritoneum, Percutaneous Endoscopic Approach (ICD-10-PCS; 2019-07-01)
PROC: 027V3DZ Dilation of Superior Vena Cava with Intraluminal Device, Percutaneous Approach (ICD-10-PCS; 2019-07-01)
PROC: 5A1945Z Respiratory Ventilation, 24-96 Consecutive Hours (ICD-10-PCS; 2019-07-01)
PROC: 5A1D70Z Performance of Urinary Filtration, Intermittent, Less than 6 Hours Per Day (ICD-10-PCS; 2019-07-01)
PROC: 02HV33Z Insertion of Infusion Device into Superior Vena Cava, Percutaneous Approach (ICD-10-PCS; 2019-07-01)
PROC: 02H633Z Insertion of Infusion Device into Right Atrium, Percutaneous Approach (ICD-10-PCS; 2019-07-01)
PROC: 30233N1 Transfusion of Nonautologous Red Blood Cells into Peripheral Vein, Percutaneous Approach (ICD-10-PCS; 2019-07-01)
PROC: 30233K1 Transfusion of Nonautologous Frozen Plasma into Peripheral Vein, Percutaneous Approach (ICD-10-PCS; 2019-07-01)
PROC: 30233R1 Transfusion of Nonautologous Platelets into Peripheral Vein, Percutaneous Approach (ICD-10-PCS; 2019-07-01)
PROC: 10D00Z1 Extraction of Products of Conception, Low, Open Approach (ICD-10-PCS; principal; 2019-07-01 08:55)
DX: O75.1 Shock during or following labor and delivery (principal); N17.0 Acute kidney failure with tubular necrosis; J95.821 Acute postprocedural respiratory failure; O15.2 Eclampsia complicating the puerperium; E87.4 Mixed disorder of acid-base balance; Q60.3 Renal hypoplasia, unilateral; D62 Acute posthemorrhagic anemia; O26.833 Pregnancy related renal disease, third trimester; R56.9 Unspecified convulsions; O72.1 Other immediate postpartum hemorrhage; E87.5 Hyperkalemia; E83.51 Hypocalcemia; O64.0XX0 Obstructed labor due to incomplete rotation of fetal head, not applicable or unspecified; O71.7 Obstetric hematoma of pelvis; Z3A.38 38 weeks gestation of pregnancy; O99.284 Endocrine, nutritional and metabolic diseases complicating childbirth; O99.03 Anemia complicating the puerperium; O76 Abnormality in fetal heart rate and rhythm complicating labor and delivery; O99.52 Diseases of the respiratory system complicating childbirth; Z37.0 Single live birth; Z88.0 Allergy status to penicillin; Z88.2 Allergy status to sulfonamides; Z88.6 Allergy status to analgesic agent; Z88.8 Allergy status to other drugs, medicaments and biological substances

== ENCOUNTER 2019-07-15 07:04 | Emergency (ER) | payer BC ==
[~2019-07-15] VITALS: Ht 162.6 cm; Wt 84.5 kg
[~2019-07-15 07:04] MED LIST changes: +PERCOCET PO
[2019-07-15] MEDS ORDERED: PROP60CA PO (07:10)
[2019-07-15 07:42] LABS: BASO # 0.1 10^3/uL (0.0-0.2); BASO % 0.7 % (0.0-1.0); EOS # 0.2 10^3/uL (0.0-0.50); EOS % 1.5 % (0.0-3.0); HEMATOCRIT 38.6 % (36.0-47.0); HEMOGLOBIN 12.3 g/dl (12.0-15.5); LYMPH # 2.8 10^3/uL (1.5-4.5); LYMPH % 23.9 % (24.0-44.0); MEAN CORPUSCULAR HEMOGLOBIN 29.6 pg (27.0-33.0); MEAN CORPUSCULAR HGB CONC 31.9 g/dl (32.0-36.5); MONO # 0.9 10^3/uL (0.0-0.8); MONO % 7.2 % (0.0-5.0); NEUTROPHILS # 7.9 10^3/uL (1.8-7.7); NEUTROPHILS % 65.9 % (36.0-66.0); PLATELET COUNT, AUTOMATED 707 10^3/uL (150-450); RED BLOOD COUNT 4.15 10^6/uL (4.00-5.40); WHITE BLOOD COUNT 11.9 10^3/uL (4.0-10.0)
[2019-07-15] MEDS ORDERED: NS 1,000 ML IV ONE (08:00)
[2019-07-15 08:08] LABS: ALBUMIN 2.9 GM/DL (3.2-5.2); ALT/SGPT 34 U/L (12-78); BILIRUBIN,TOTAL 0.7 MG/DL (0.2-1.0); BLOOD UREA NITROGEN 14 MG/DL (7-18); CALCIUM LEVEL 8.5 MG/DL (8.5-10.1); CARBON DIOXIDE LEVEL 25 MEQ/L (21-32); CHLORIDE LEVEL 108 MEQ/L (98-107); CREATININE FOR GFR 0.84 MG/DL (0.55-1.30); GLOMERULAR FILTRATION RATE > 60.0 (>60); GLUCOSE, FASTING 70 MG/DL (70-100); POTASSIUM SERUM 4.5 MEQ/L (3.5-5.1); SODIUM LEVEL 140 MEQ/L (136-145); TOTAL PROTEIN 6.8 GM/DL (6.4-8.2)
[2019-07-15 08:08] LABS: INR 1.03; PROTHROMBIN TIME 13.2 SECONDS (11.8-14.0)
[2019-07-15 08:09] LABS: PARTIAL THROMBOPLASTIN TIME 27.5 SECONDS (25.0-38.4)
[2019-07-15 09:48] VITALS: BP 128/78
--- NOTE | 2019-07-15 09:50 | REP ---
PELVIC ULTRASOUND: 07/15/2019. Clinical history: 2 weeks status post with retroperitoneal hemorrhage, current heavy vaginal bleeding. Comparison: CT abdomen and pelvis 07/01/2019. Findings: Uterus is enlarged at 15.3 x 6.1 x 8.5 cm in a 2 week patient and is anteverted. Endometrial stripe is centrally located with a thickness of 5.1 mm. Echogenic foci seen in the endometrial cavity suggests some air. There is some moderate fluid in the vaginal vault and canal. The right ovary is 4.4 x 1.6 x 2.4 cm with Doppler flow demonstrated and resistive index 0.44. There is a small amount of free fluid adjacent. The left ovary is 3.8 x 1.8 x 2.5 cm and also shows normal Doppler flow with resistive index 0.62. Abutting the superior aspect of the right ovary and extending upward to the right lobe of the liver is a complex fluid collection measuring 16.5 x 8.0 x 11.5 cm. This represents a large retroperitoneal hematoma seen on CT 2 weeks ago. Impression: 1. Enlarged uterus consistent with 2-week from . There is air in the endometrial cavity and this raises question of possible endometritis. There is fluid in the vaginal vault and canal. I am not aware of any recent instrumentation that might explain the air. 2. There is a 16.5 x 8 x 11.5 a centimeter complex fluid collection representing the retroperitoneal hematoma seen on the CT 2 weeks ago. This is to the right of midline abutting the right ovary inferiorly and the right lobe of the liver superiorly. Small amount of free fluid adjacent to the right ovary. Left ovary normal. Electronically Signed by Rafi Martinez MD 07/15/2019 09:38 P
--- NOTE | 2019-07-16 09:15 | HPE ---
DATE OF ADMISSION: 07/15/2019 33-year-old, (G)1, para (P) 1 female who is postoperative day #14 after emergency section who presents to the emergency room with increased bleeding since development geologist on the day of presentation. She soaked three ludmila pads each in under an hour. She did not pass clots. She had no severe pain. She did not feel dizzy or lightheaded. She thought she would come into the ER due to concerns for heavy bleeding. Her delivery two weeks ago was complicated by a retroperitoneal hematoma with hemorrhage, disseminated intravascular coagulation (DIC), as well as, kidney failure. She received 21 units of blood in transfusion at that time. MEDICAL HISTORY: 1. Anxiety and depression. 2. History of hypothyroidism, currently stable. SURGICAL HISTORY: 1. section. 2. 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 ALLERGIES: - SULFA - AMOXICILLIN - CLAVULANIC ACID - IBUPROFEN SOCIAL HISTORY: The patient is . She denies cigarettes, alcohol or drug use. FAMILY HISTORY: Noncontributory. PHYSICAL EXAMINATION: Blood pressure 128/78. Pulse 84. Respiratory rate 16. She is in no apparent distress. Head and Neck Exam: Normal. Lungs: Clear. Heart: Regular rate and rhythm. Abdomen: Nontender. Soft. Nondistended. Mild ecchymosis near incision/scar. Pelvic Exam: Reveals mildly enlarged uterus consistent with state. No heavy bleeding present. Extremities: Nontender. LABS: Hemoglobin 12.3 grams/deciliter. Uterus is enlarged consistent with state, endometrial stripe is 5.1 mm. The retroperitoneal hematoma is smaller than previous measurements, but still quite substantial in size. ASSESSMENT: 33-year-old, G1, P1, postoperative day #14 after emergency section who presents with bleeding, however, appears to be stable currently. PLAN: No evidence that the patient needs intervention such as dilation and curettage (D and C) procedure at this time. There does not appear to be any retained products of conception nor hematometra. Vital signs and blood counts have all remained stable. Plan to discharge home. Will start oral Provera to help decrease bleeding. The bleeding actually may represent her first menstrual period after the delivery. She will followup next week to ensure resolution.
== END 2019-07-15 09:52 | disposition home or self-care (01) ==
LOC: M ED 07:04
DX: O72.2 Delayed and secondary postpartum hemorrhage (principal); R10.2 Pelvic and perineal pain; Z98.890 Other specified postprocedural states

== ENCOUNTER → 2020-12-20 | Outpatient (REF) | payer BC ==
[~2020-12-20] MED LIST changes: +PROP60CA PO
[2020-12-20 12:53] LABS: BASO # 0.1 10^3/uL (0.0-0.2); BASO % 0.8 % (0.0-1.0); EOS # 0.1 10^3/uL (0.0-0.5); EOS % 1.3 % (0.0-3.0); HEMATOCRIT 40.8 % (36.0-47.0); LYMPH # 3.7 10^3/uL (1.5-5.0); LYMPH % 35.2 % (24.0-44.0); MEAN CORPUSCULAR HEMOGLOBIN 31.7 pg (27.0-33.0); MEAN CORPUSCULAR HGB CONC 31.9 g/dl (32.0-36.5); MEAN CORPUSCULAR VOLUME 99.5 fl (80.0-96.0); MONO # 0.7 10^3/uL (0.0-0.8); MONO % 6.1 % (0.0-5.0); NEUTROPHILS % 56.2 % (36.0-66.0); PLATELET COUNT, AUTOMATED 335 10^3/uL (150-450); WHITE BLOOD COUNT 10.6 10^3/uL (4.0-10.0)
[2020-12-20 13:49] LABS: ALBUMIN 3.5 GM/DL (3.2-5.2); BILIRUBIN,TOTAL 0.7 MG/DL (0.2-1.0); CALCIUM LEVEL 9.2 MG/DL (8.5-10.1); CREATININE FOR GFR 1.12 MG/DL (0.55-1.30); FREE T4 0.95 NG/DL (0.76-1.46); GLOMERULAR FILTRATION RATE 58.3 (>60); POTASSIUM SERUM 4.5 MEQ/L (3.5-5.1); THYROID STIMULATING HORMONE 3.64 uIU/ML (0.358-3.740); TOTAL 25(OH) VITAMIN D 25.2 NG/ML (30.0-100.0); TOTAL PROTEIN 7.1 GM/DL (6.4-8.2)
== END ==
LOC: M PLALAB 11:41
PROVIDERS: ATTEND Nurse Practitioner Family
DX: J30.89 Other allergic rhinitis (principal); F41.8 Other specified anxiety disorders

== ENCOUNTER → 2021-05-30 | Outpatient (CLI) | payer BC ==
[2021-05-30 13:34] LABS: ALBUMIN 3.4 GM/DL (3.2-5.2); ALT/SGPT 22 U/L (12-78); BILIRUBIN,TOTAL 0.2 MG/DL (0.2-1.0); BLOOD UREA NITROGEN 16 MG/DL (7-18); CALCIUM LEVEL 8.9 MG/DL (8.5-10.1); CARBON DIOXIDE LEVEL 24 MEQ/L (21-32); CHLORIDE LEVEL 109 MEQ/L (98-107); CREATININE FOR GFR 0.98 MG/DL (0.55-1.30); GLOMERULAR FILTRATION RATE > 60.0 (>60); GLUCOSE, FASTING 74 MG/DL (70-100); POTASSIUM SERUM 4.7 MEQ/L (3.5-5.1); SODIUM LEVEL 140 MEQ/L (136-145); TOTAL PROTEIN 6.8 GM/DL (6.4-8.2)
[2021-05-30 13:43] LABS: TOTAL 25(OH) VITAMIN D 110.9 NG/ML (30.0-100.0)
== END ==
LOC: M PLALAB 10:54
PROVIDERS: ATTEND Nurse Practitioner Family
DX: F41.8 Other specified anxiety disorders (principal); E55.9 Vitamin D deficiency, unspecified

== ENCOUNTER → 2021-08-29 | Outpatient (REF) | payer BC | LOC: M SFHCWAGY 17:11 | PROVIDERS: ATTEND Obstetrics & Gynecology | DX: Z12.4 Encounter for screening for malignant neoplasm of cervix (principal); B37.3 Candidiasis of vulva and vagina | CPT/HCPCS: 87624; G0123 ==

== ENCOUNTER → 2021-09-25 | Outpatient (REF) | payer BC | LOC: M SFHCPLAZ 10:35 | PROVIDERS: ATTEND Family Medicine | DX: L72.11 Pilar cyst (principal) ==

== ENCOUNTER → 2021-10-27 | Outpatient (CLI) | payer BC ==
[2021-10-28 19:06] LABS: ANA (HEP2) Negative (.)
== END ==
LOC: M PLALAB 08:51
PROVIDERS: ATTEND Physician Assistant
DX: L65.9 Nonscarring hair loss, unspecified (principal)

== ENCOUNTER → 2022-01-26 | Outpatient (CLI) | payer BC ==
[2022-01-26 10:54] LABS: ALBUMIN 3.2 GM/DL (3.2-5.2); BILIRUBIN,TOTAL 0.2 MG/DL (0.2-1.0); CALCIUM LEVEL 9.1 MG/DL (8.5-10.1); CREATININE FOR GFR 1.1 MG/DL (0.55-1.30); GLOMERULAR FILTRATION RATE 59.2 (>60); POTASSIUM SERUM 4.8 MEQ/L (3.5-5.1); TOTAL PROTEIN 6.9 GM/DL (6.4-8.2)
== END ==
LOC: M PLALAB 08:40
PROVIDERS: ATTEND Nurse Practitioner Family
DX: N26.1 Atrophy of kidney (terminal) (principal)

== ENCOUNTER → 2022-01-26 | Outpatient (REF) | payer BC | LOC: M SFHCDERM 13:53 | PROVIDERS: ATTEND Physician Assistant | DX: D22.39 Melanocytic nevi of other parts of face (principal) ==

== ENCOUNTER → 2022-09-02 | Outpatient (CLI) | payer OTHER ==
[2022-09-02 13:15] LABS: HEMOGLOBIN 13.4 g/dl (12.0-15.5); MEAN CORPUSCULAR HEMOGLOBIN 30.2 pg (27.0-33.0); MEAN CORPUSCULAR HGB CONC 31.2 g/dl (32.0-36.5); MEAN CORPUSCULAR VOLUME 97.1 fl (80.0-96.0); PLATELET COUNT, AUTOMATED 337 10^3/uL (150-450); RED BLOOD COUNT 4.43 10^6/uL (4.00-5.40); WHITE BLOOD COUNT 12.1 10^3/uL (4.0-10.0)
[2022-09-02 14:45] LABS: ATYPICAL LYMPH 4 % (0-5); BASOPHILS 1 % (0-1); EOSINOPHILS 3 % (0-3); LYMPHOCYTES 36 % (16-44); MONOCYTES 8 % (0-5); NEUTROPHILS 48 % (28-66)
[2022-09-02 14:46] LABS: ANISOCYTOSIS 1+; PLATELET ESTIMATE NORMAL (NORMAL)
[2022-09-02 15:12] LABS: ALBUMIN 3.6 GM/DL (3.2-5.2); BILIRUBIN,TOTAL 0.4 MG/DL (0.2-1.0); CALCIUM LEVEL 9.3 MG/DL (8.5-10.1); CHOLESTEROL RISK RATIO 4.365 (<5); CREATININE FOR GFR 1.1 MG/DL (0.55-1.30); FREE T4 0.87 NG/DL (0.76-1.46); GLOMERULAR FILTRATION RATE 59.2 (>60); POTASSIUM SERUM 4.4 MEQ/L (3.5-5.1); THYROID STIMULATING HORMONE 2.78 uIU/ML (0.358-3.740)
== END ==
LOC: M PLALAB 10:55
PROVIDERS: ATTEND Nurse Practitioner Family
DX: N18.31 Chronic kidney disease, stage 3a (principal); F41.1 Generalized anxiety disorder; Z13.220 Encounter for screening for lipoid disorders; J30.89 Other allergic rhinitis

== ENCOUNTER → 2022-12-18 | Outpatient (REF) | payer OTHER | LOC: M SFHCWAGY 17:14 | PROVIDERS: ATTEND Obstetrics & Gynecology | DX: Z12.4 Encounter for screening for malignant neoplasm of cervix (principal); R87.615 Unsatisfactory cytologic smear of cervix | CPT/HCPCS: 87624; G0123 ==

== ENCOUNTER → 2023-02-18 | Outpatient (REF) | payer OTHER | LOC: M WUC 12:12 | PROVIDERS: ATTEND Student in an Organized Health Care Education/Training Program | DX: R30.0 Dysuria (principal) ==

== ENCOUNTER → 2024-05-08 | Outpatient (REF) | payer OTHER ==
[2024-05-10 13:52] LABS: HPV APTIMA Not Detected (Not Detected)
== END ==
LOC: M SFHCWAGY 17:53
PROVIDERS: ATTEND Obstetrics & Gynecology
DX: Z12.4 Encounter for screening for malignant neoplasm of cervix (principal)
CPT/HCPCS: 87624; G0123

== ENCOUNTER → 2024-05-25 | Outpatient (CLI) | payer OTHER | LOC: M WHC 07:07 | PROVIDERS: ATTEND Obstetrics & Gynecology | DX: Z12.31 Encounter for screening mammogram for malignant neoplasm of breast (principal); R92.333 Mammographic heterogeneous density, bilateral breasts ==

== ENCOUNTER → 2024-07-17 | Outpatient (CLI) | payer OTHER | LOC: M WHC 12:54 | PROVIDERS: ATTEND Obstetrics & Gynecology | DX: R92.2 Inconclusive mammogram (principal) ==

== ENCOUNTER → 2024-10-11 | Outpatient (CLI) | payer OTHER | LOC: M PLALAB 15:42 | PROVIDERS: ATTEND Physician Assistant Medical | DX: R21 Rash and other nonspecific skin eruption (principal) ==

== ENCOUNTER → 2024-10-25 | Outpatient (REF) | payer OTHER | LOC: M SFHCADAM 10:46 | PROVIDERS: ATTEND Nurse Practitioner Family | DX: Z53.20 Procedure and treatment not carried out because of patient's decision for unspecified reasons (principal) ==

== ENCOUNTER → 2025-09-12 | Outpatient (REF) | payer OTHER ==
[2025-09-14 12:48] LABS: HPV APTIMA Not Detected (Not Detected)
== END ==
LOC: M SFHCWAGY 15:22
PROVIDERS: ATTEND Obstetrics & Gynecology
DX: Z12.4 Encounter for screening for malignant neoplasm of cervix (principal); R87.610 Atypical squamous cells of undetermined significance on cytologic smear of cervix (ASC-US)
CPT/HCPCS: 87624; G0123

== ENCOUNTER → 2025-11-01 | Outpatient (CLI) | payer OTHER | LOC: M WHC 08:44 | PROVIDERS: ATTEND Obstetrics & Gynecology | DX: Z12.31 Encounter for screening mammogram for malignant neoplasm of breast (principal); R92.333 Mammographic heterogeneous density, bilateral breasts ==